=== PATIENT | female | born 1955 | race Caucasian/White ===

== ENCOUNTER 2018-09-02 18:55 | Inpatient (IN) | payer MEDICARE, OTHER ==
[~2018-09-02] VITALS: Ht 170.2 cm; Wt 208.2 kg
[~2018-09-02 18:55] MED LIST: ASPI-482 PO; CHOL500045 PO; CRESTOR5 MG PO; HYDR-2765 PO; OLME1TAB21 PO
--- NOTE | 2018-09-02 19:28 | PHYS DOC ---
Past Medical History Past Medical History: High Cholesterol, Hypertension, Other Additional Past Medical Histor: LYMPHADEMA Past Surgical History: Other Additional Past Surgical Histo: PARTIAL HYSTERECTOMY, LEFT SHOULDER,BILAT CTR Alcohol Use: None Drug Use: None Adult General Chief Complaint Chief Complaint: SKIN RASH/ABSCESS [facility] HPI Patient is a 62 year old female who presents with generalized weakness, malaise, fever 103 and soft tissue abscess to left upper inner medial thigh. Patient first noticed abscess 2 days ago. Patient has been bandaging it along the posterior drain. However, the patient began to feel weak, nauseated and fatigued today prompting her to call EMS. Patient noted to have fever on their arrival. History of recurrent soft tissue skin infections. Patient also reports possible spider bite or pustule on left forearm. Patient also has lymphedema with chronic erythroderma of bilateral lower extremities. No other acute symptoms or complaints.[] Review of Systems Review of Systems ROS as per HPI All other systems were reviewed and found to be within normal limits, except as documented in this note. Current Medications Current Medications Current Medications Medications (Trade) Dose Ordered Sig/Ginger Start Time Stop Time Status Last Admin Dose Admin Sodium Chloride 1,000 ml @ 1,000 mls/hr 1X ONCE 09/02/18 20:00 09/02/18 20:59 DC 09/02/18 20:38 1,000 MLS/HR Vancomycin HCl (Vanco Per Pharmacy) 1 each PRN DAILY PRN 09/02/18 19:30 09/02/18 21:21 1 EACH Vancomycin HCl 2 gm/Sodium Chloride 500 ml @ 166.667 mls/hr 1X ONCE 09/02/18 20:00 09/02/18 22:59 DC 09/02/18 20:38 166.667 MLS/HR Allergies Allergies Allergies Coded Allergies Type Severity Reaction Last Updated Verified NSAIDS (Non-Steroidal Anti-Inflamma Allergy Intermediate 09/02/18 Yes Penicillins Allergy Intermediate Rash 09/02/18 Yes ciprofloxacin Allergy Intermediate 09/02/18 Yes doxycycline Allergy Intermediate Rash 09/02/18 Yes levofloxacin Allergy Intermediate 09/02/18 Yes vancomycin Allergy Intermediate Rash 09/02/18 Yes Physical Exam Physical Exam Constitutional: Well developed, well nourished, no acute distress, non-toxic appearance. [] HENT: Normocephalic, atraumatic, bilateral external ears normal, oropharynx moist, nose normal. [] Eyes: PERRLA, EOMI. [] Neck: Normal range of motion, no tenderness, supple, no stridor. [] Cardiovascular:Heart rate regular rhythm, no murmur [] Lungs & Thorax: Bilateral breath sounds clear to auscultation [] Abdomen: Bowel sounds normal, obesity compromising exam.. [] Skin: Warm, dry, superficial pustule left forearm, no drainage. [] Back: No tenderness, no CVA tenderness. [] Extremities: Approximately 4 x 3 cm indurated area of left upper medial thigh with a troponin consistent with abscess righted by small patch of cellulitis, no drinking or drainage. No induration. [] Neurologic: Alert and oriented X 3, normal motor function, normal sensory function, no focal deficits noted. [] Psychologic: Affect normal, judgement normal, mood normal. [] Current Patient Data Vital Signs Vital Signs Date Time Temp Pulse Resp B/P (MAP) Pulse Ox O2 Delivery O2 Flow Rate FiO2 09/02/18 18:55 98.5 97 24 152/87 (108) 99 Room Air 98.5 Lab Values Laboratory Tests Test 09/02/18 19:10 09/02/18 20:00 Urine Collection Type Unknown Urine Color Yellow Urine Clarity Clear Urine pH 7.0 Urine Specific [place] 1.015 Urine Protein Negative mg/dL (NEG-TRACE) Urine Glucose (UA) Negative mg/dL (NEG) Urine Ketones (Stick) Negative mg/dL (NEG) Urine Blood Trace (NEG) Urine Nitrite Negative (NEG) Urine Bilirubin Negative (NEG) Urine Urobilinogen Dipstick 0.2 mg/dL (0.2 mg/dL) Urine Leukocyte Esterase Trace (NEG) Urine RBC 1-2 /HPF (0-2) Urine WBC 1-4 /HPF (0-4) Urine Squamous Epithelial Cells Mod /LPF Urine Bacteria Few /HPF (0-FEW) White Blood Count 8.4 x10^3/uL (4.0-11.0) Red Blood Count 4.56 x10^6/uL (3.50-5.40) Hemoglobin 12.5 g/dL (12.0-15.5) Hematocrit 38.0 % (36.0-47.0) Mean Corpuscular Volume 83 fL (79-100) Mean Corpuscular Hemoglobin 27 pg (25-35) Mean Corpuscular Hemoglobin Concent 33 g/dL (31-37) Red Cell Distribution Width 14.1 % (11.5-14.5) Platelet Count 234 x10^3/uL (140-400) Neutrophils (%) (Auto) 68 % (31-73) Lymphocytes (%) (Auto) 21 % (24-48) L Monocytes (%) (Auto) 10 % (0-9) H Eosinophils (%) (Auto) 0 % (0-3) Basophils (%) (Auto) 1 % (0-3) Neutrophils # (Auto) 5.7 x10^3uL (1.8-7.7) Lymphocytes # (Auto) 1.8 x10^3/uL (1.0-4.8) Monocytes # (Auto) 0.8 x10^3/uL (0.0-1.1) Eosinophils # (Auto) 0.0 x10^3/uL (0.0-0.7) Basophils # (Auto) 0.1 x10^3/uL (0.0-0.2) Sodium Level 135 mmol/L (136-145) L Potassium Level 3.9 mmol/L (3.5-5.1) Chloride Level 99 mmol/L (98-107) Carbon Dioxide Level 26 mmol/L (21-32) Anion Gap 10 (6-14) Blood Urea Nitrogen 11 mg/dL (7-20) Creatinine 0.9 mg/dL (0.6-1.0) Estimated GFR (Cockcroft-Gault) 63.7 BUN/Creatinine Ratio 12 (6-20) Glucose Level 115 mg/dL (70-99) H Lactic Acid Level 1.0 mmol/L (0.4-2.0) Calcium Level 9.4 mg/dL (8.5-10.1) Total Bilirubin 0.8 mg/dL (0.2-1.0) Aspartate Amino Transferase (AST) 21 U/L (15-37) Alanine Aminotransferase (ALT) 22 U/L (14-59) Alkaline Phosphatase 90 U/L (46-116) Creatine Kinase 151 U/L (26-192) Total Protein 8.1 g/dL (6.4-8.2) Albumin 3.4 g/dL (3.4-5.0) Albumin/Globulin Ratio 0.7 (1.0-1.7) L Laboratory Tests 09/02/18 20:00 Laboratory Tests 09/02/18 20:00 EKG EKG [] Radiology/Procedures Radiology/Procedures [] Course & Med Decision Making Course & Med Decision Making Pertinent Labs and Imaging studies reviewed. (See chart for details) [Soft tissue infection, left thigh. Patient started empirically on clindamycin and vancomycin. States she has tolerated vancomycin in the past but that it needs to be given slowly due to concern for red man syndrome. Will admit to the hospitalist service.] Dragon Disclaimer Dragon Disclaimer This electronic medical record was generated, in whole or in part, using a voice recognition dictation system. Departure Departure Impression: Primary Impression: Abscess of left thigh Disposition: ADMITTED INPATIENT Admitting Physician: Saul Arauz Condition: GOOD Referrals: TERESA WILLIAMSON MD (PCP) KYLIE HILL DO Sep 02, 2018 19:28
[2018-09-02 19:31] LABS: BILIRUBIN,URINE NEGATIVE (NEG); CLARITY,URINE CLEAR; COLOR,URINE YELLOW; NITRITE,URINE NEGATIVE (NEG); PROTEIN,URINE NEGATIVE (NEG-TRACE); UROBILINOGEN,URINE 0.2 mg/dL (0.2 mg/dL)
[2018-09-02 19:38] LABS: BACTERIA,URINE FEW /HPF (0-FEW); SQUAMOUS EPITHELIAL CELL,UR MOD /LPF
[2018-09-02] MEDS ORDERED: VANCOMYCIN 2 GM in IV NORMAL SALINE 500ML BAG 500 ML IV ONE (20:00)
[2018-09-02] MEDS ORDERED: IV NORMAL SALINE 1000ML BAG 1,000 ML IV ONE (20:00)
[2018-09-02 20:11] LABS: BASO # 0.1 x10^3/uL (0.0-0.2); BASO % 1 % (0-3); EOS % 0 % (0-3); HEMOGLOBIN 12.5 g/dL (12.0-15.5); LYMPH # 1.8 x10^3/uL (1.0-4.8); LYMPH % 21 % (24-48); MEAN CORPUSCULAR HEMOGLOBIN 27 pg (25-35); MEAN CORPUSCULAR HGB CONC 33 g/dL (31-37); MEAN CORPUSCULAR VOLUME 83 fL (79-100); MONO # 0.8 x10^3/uL (0.0-1.1); MONO % 10 % (0-9); NEUT # 5.7 x10^3uL (1.8-7.7); NEUT % 68 % (31-73); PLATELET COUNT 234 x10^3/uL (140-400); RED BLOOD COUNT 4.56 x10^6/uL (3.50-5.40); RED CELL DISTRIBUTION WIDTH 14.1 % (11.5-14.5); WHITE BLOOD COUNT 8.4 x10^3/uL (4.0-11.0)
[2018-09-02 20:21] LABS: CALCIUM 9.4 mg/dL (8.5-10.1); CREATININE 0.9 mg/dL (0.6-1.0); GFR 63.7; POTASSIUM 3.9 mmol/L (3.5-5.1)
--- NOTE | 2018-09-02 20:26 | RAD ---
CHEST AP ONLY History: Shortness of air Comparison: April 11, 2007 Findings: 2 portable AP views of the chest are submitted. Pericardial cardiac silhouette is prominent as seen previously. Fullness in the region of azygous is more apparent on this exam. There is no pneumothorax. Evaluation of the left lung base is limited due to the pericardial cardiac silhouette,. There is some mild perihilar opacity bilaterally Impression: 1. Pericardial cardiac silhouette is again enlarged. There is mild perihilar opacity which could be due to edema or atypical infection. There is some fullness in the region of the azygos more apparent on this exam, could be due to azygos distention. Electronically signed by: Rj Brooks MD (09/02/2018 8:23 PM) [facility]
[2018-09-02 20:34] LABS: ALBUMIN 3.4 g/dL (3.4-5.0); ALBUMIN/GLOBULIN RATIO 0.7 (1.0-1.7); TOTAL BILIRUBIN 0.8 mg/dL (0.2-1.0); TOTAL PROTEIN 8.1 g/dL (6.4-8.2)
[2018-09-02] MEDS ORDERED: ONDANSETRON PF 4 MG/2 ML VIAL. IV PRN (20:45)
[2018-09-02] MEDS ORDERED: MORPHINE SULFATE 2 MG/ML VIAL. IV PRN (20:45)
[2018-09-02] MEDS: VANCOMYCIN PER PHARMACY MC PRN (21:21)
--- NOTE | 2018-09-02 21:25 | NUR ---
Pharmacy Vancomycin Dosing Note S: Consulted to monitor and dose vancomycin started 09/02/18. O: RAFIA MALHOTRA is a 62 year old F with Cellulitis, . Other Antibiotics: NONE LABS: Last BUN: 11 Last Creatinine: 0.9 Creatinine Clearance: >100 mL/min Last WBC: 8.4 Tmax (past 24 hours): AFEBRILE Vancomycin Dosing: Dosing Weight: Adjusted Target Trough: 10-20 A: Based on: VANCO dosing guidelines P: 1. Begin Vancomycin 2000 mg IV q12h 2. Follow up Trough level on 09/03/18 at 2030 3. Pharmacy will continue to monitor, follow and adjust therapy as needed. DESMOND KOHLER, [facility], 09/02/18 1110
[2018-09-02] MEDS ORDERED: LOSA25TA54 PO (21:52)
[2018-09-02 22:02] VITALS: BP 180/73
--- NOTE | 2018-09-02 22:17 | HP ---
ADMIT DATE: 09/02/2018 CHIEF COMPLAINT: Right posterior thigh abscess. HISTORY OF PRESENT ILLNESS: The patient is a pleasant, morbidly obese white female who weighs 450 pounds. She has chronic soft tissue issues. At this time, it is on the right posterior thigh. I think it has been there before. It is not very big, but is quite swollen, it is draining. It is in the right ____ in the middle of the right posterior thigh. It has been worsening over the past 2 days, describes as agonizing, very painful. She tried to call her primary care doctor, get some antibiotics, but that did not seem to work out. It is worse with moving, better with sitting still. I discussed the case with the ER physician. We are going to admit the patient, give IV antibiotics and consult Infectious Disease and General Surgery. PAST MEDICAL HISTORY: Morbid obesity, 450 pounds; hypertension; hyperlipidemia; chronic lymphedema; previous skin abscesses; hysterectomy; shoulder surgery. ALLERGIES: NSAIDS, PENICILLIN, CIPRO, DOXYCYCLINE, LEVAQUIN, AND VANCOMYCIN. FAMILY HISTORY: Coronary disease. SOCIAL HISTORY: She does not drink, smoke or take drugs. MEDICATIONS: Reviewed, please refer to the MRAD. REVIEW OF SYSTEMS: GENERAL: No history of weight change, weakness or fevers. SKIN: No bruising, hair changes or rashes. EYES: No blurred, double or loss of vision. NOSE AND THROAT: No history of nosebleeds, hoarseness or sore throat. HEART: No history of palpitations, chest pain or shortness of breath on exertion. LUNGS: Denies cough, hemoptysis, wheezing or shortness of breath. GASTROINTESTINAL: Denies changes in appetite, nausea, vomiting, diarrhea or constipation. GENITOURINARY: No history of frequency, urgency, hesitancy or nocturia. NEUROLOGIC: Denies history of numbness, tingling, tremor or weakness. PSYCHIATRIC: No history of panic, anxiety or depression. ENDOCRINE: No history of heat or cold intolerance, polyuria or polydipsia. EXTREMITIES: She complains of right posterior thigh abscess. PHYSICAL EXAMINATION: VITAL SIGNS: Temperature afebrile, pulse 98, respirations 18, blood pressure 142/90. GENERAL: She is alert, cooperative, pleasant. HEART: Normal S1, S2. LUNGS: Diminished. ABDOMEN: Soft, extremely obese. EXTREMITIES: Very obese. The right posterior thigh does have an abscess about 1 cm across with some surrounding erythema and drainage. ENDOCRINE: No thyromegaly. LYMPHATICS: No cervical nodes. HEMATOPOIETIC: No bruising. PSYCHIATRIC: She is depressed. LABORATORY DATA: Hematology is normal. Electrolytes are normal other than sodium of 135. Urinalysis, trace leukocyte esterase with 1 white cell. ASSESSMENT AND PLAN: Right posterior thigh abscess. The patient has been admitted. We will start IV vancomycin as she seems to have tolerated that already today. As long as we push it slow she states she can take it. We will consult Infectious Disease, General Surgery. Continue home medicines. Wound care nurse to evaluate and treat. Full code. DVT prophylaxis, PT, OT. PROGNOSIS: Guarded. DO EVERETT DO DR: BEN/carmen JOB#: [id number] / [id number]
[2018-09-02] MEDS ORDERED: CETI10TA22 PO (23:40)
[2018-09-02] MEDS ORDERED: GUAI100G2 PO (23:40)
[2018-09-02] MEDS: IV NORMAL SALINE 1000ML BAG 1,000 ML IV SCH (23:43)
[2018-09-02] MEDS ORDERED: ALPRAZolam 0.5 MG TABLET PO PRN (23:45)
[2018-09-03] MEDS: HYDROcodone/APAP 7.5/325MG 1 TAB TABLET PO PRN ×3 (01:59→19:49)
[2018-09-03 03:43] VITALS: BP 112/54
[2018-09-03 04:44] LABS: BASO % 0 % (0-3); EOS % 1 % (0-3); HEMOGLOBIN 11.4 g/dL (12.0-15.5); LYMPH # 2.3 x10^3/uL (1.0-4.8); LYMPH % 31 % (24-48); MEAN CORPUSCULAR HEMOGLOBIN 27 pg (25-35); MEAN CORPUSCULAR HGB CONC 33 g/dL (31-37); MEAN CORPUSCULAR VOLUME 84 fL (79-100); MONO # 0.9 x10^3/uL (0.0-1.1); MONO % 12 % (0-9); NEUT # 4.1 x10^3uL (1.8-7.7); NEUT % 56 % (31-73); PLATELET COUNT 222 x10^3/uL (140-400); RED BLOOD COUNT 4.16 x10^6/uL (3.50-5.40); RED CELL DISTRIBUTION WIDTH 14.2 % (11.5-14.5); WHITE BLOOD COUNT 7.4 x10^3/uL (4.0-11.0)
[2018-09-03 05:00] LABS: CALCIUM 8.8 mg/dL (8.5-10.1); CREATININE 0.7 mg/dL (0.6-1.0); GFR 85.1; POTASSIUM 3.5 mmol/L (3.5-5.1)
[2018-09-03 07:20] VITALS: BP 130/67
[2018-09-03] MEDS ORDERED: POTASSIUM CHLORIDE 20 MEQ TABLET.ER. PO ONE (09:30)
--- NOTE | 2018-09-03 09:50 | PDOC ---
PROGRESS NOTES Chief Complaint Chief Complaint sepsis Right posterior thigh abscess. morbid obesity, BMI 75 chronic hip and leg and back pain, History of Present Illness History of Present Illness PT and OT and wound care and lymph therapy IV abx, ID consult gen surg consult, may benefit from I+D from appearance, Vitals Vitals Vital Signs Date Time Temp Pulse Resp B/P (MAP) Pulse Ox O2 Delivery O2 Flow Rate FiO2 09/03/18 07:20 99.0 103 20 130/67 (88) 94 Room Air 99.0 Physical Exam General: Alert, Oriented X3, Cooperative, mild distress Heart: Normal S1, Normal S2 Abdomen: Normal bowel sounds Extremities: No clubbing Skin: Other (left post thigh celllulitis and open abcess, ) Labs LABS Laboratory Tests Test 09/02/18 19:10 09/02/18 20:00 09/03/18 04:00 Urine Collection Type Unknown Urine Color Yellow Urine Clarity Clear Urine pH 7.0 Urine Specific [place] 1.015 Urine Protein Negative mg/dL (NEG-TRACE) Urine Glucose (UA) Negative mg/dL (NEG) Urine Ketones (Stick) Negative mg/dL (NEG) Urine Blood Trace (NEG) Urine Nitrite Negative (NEG) Urine Bilirubin Negative (NEG) Urine Urobilinogen Dipstick 0.2 mg/dL (0.2 mg/dL) Urine Leukocyte Esterase Trace (NEG) Urine RBC 1-2 /HPF (0-2) Urine WBC 1-4 /HPF (0-4) Urine Squamous Epithelial Cells Mod /LPF Urine Bacteria Few /HPF (0-FEW) White Blood Count 8.4 x10^3/uL (4.0-11.0) 7.4 x10^3/uL (4.0-11.0) Red Blood Count 4.56 x10^6/uL (3.50-5.40) 4.16 x10^6/uL (3.50-5.40) Hemoglobin 12.5 g/dL (12.0-15.5) 11.4 g/dL (12.0-15.5) Hematocrit 38.0 % (36.0-47.0) 35.0 % (36.0-47.0) Mean Corpuscular Volume 83 fL (79-100) 84 fL (79-100) Mean Corpuscular Hemoglobin 27 pg (25-35) 27 pg (25-35) Mean Corpuscular Hemoglobin Concent 33 g/dL (31-37) 33 g/dL (31-37) Red Cell Distribution Width 14.1 % (11.5-14.5) 14.2 % (11.5-14.5) Platelet Count 234 x10^3/uL (140-400) 222 x10^3/uL (140-400) Neutrophils (%) (Auto) 68 % (31-73) 56 % (31-73) Lymphocytes (%) (Auto) 21 % (24-48) 31 % (24-48) Monocytes (%) (Auto) 10 % (0-9) 12 % (0-9) Eosinophils (%) (Auto) 0 % (0-3) 1 % (0-3) Basophils (%) (Auto) 1 % (0-3) 0 % (0-3) Neutrophils # (Auto) 5.7 x10^3uL (1.8-7.7) 4.1 x10^3uL (1.8-7.7) Lymphocytes # (Auto) 1.8 x10^3/uL (1.0-4.8) 2.3 x10^3/uL (1.0-4.8) Monocytes # (Auto) 0.8 x10^3/uL (0.0-1.1) 0.9 x10^3/uL (0.0-1.1) Eosinophils # (Auto) 0.0 x10^3/uL (0.0-0.7) 0.0 x10^3/uL (0.0-0.7) Basophils # (Auto) 0.1 x10^3/uL (0.0-0.2) 0.0 x10^3/uL (0.0-0.2) Sodium Level 135 mmol/L (136-145) 140 mmol/L (136-145) Potassium Level 3.9 mmol/L (3.5-5.1) 3.5 mmol/L (3.5-5.1) Chloride Level 99 mmol/L (98-107) 104 mmol/L (98-107) Carbon Dioxide Level 26 mmol/L (21-32) 27 mmol/L (21-32) Anion Gap 10 (6-14) 9 (6-14) Blood Urea Nitrogen 11 mg/dL (7-20) 8 mg/dL (7-20) Creatinine 0.9 mg/dL (0.6-1.0) 0.7 mg/dL (0.6-1.0) Estimated GFR (Cockcroft-Gault) 63.7 85.1 BUN/Creatinine Ratio 12 (6-20) Glucose Level 115 mg/dL (70-99) 110 mg/dL (70-99) Lactic Acid Level 1.0 mmol/L (0.4-2.0) Calcium Level 9.4 mg/dL (8.5-10.1) 8.8 mg/dL (8.5-10.1) Total Bilirubin 0.8 mg/dL (0.2-1.0) Aspartate Amino Transf (AST/SGOT) 21 U/L (15-37) Alanine Aminotransferase (ALT/SGPT) 22 U/L (14-59) Alkaline Phosphatase 90 U/L (46-116) Creatine Kinase 151 U/L (26-192) Total Protein 8.1 g/dL (6.4-8.2) Albumin 3.4 g/dL (3.4-5.0) Albumin/Globulin Ratio 0.7 (1.0-1.7) Review of Systems Review of Systems back pain, wekaness, knee pain, thigh pain, chronic complaints Assessment and Plan Assessmemt and Plan Problems Medical Problems: (1) Abscess of left thigh Status: Acute Comment Review of Relevant I have reviewed the following items kenneth (where applicable) has been applied. Labs Laboratory Tests Test 09/02/18 19:10 09/02/18 20:00 09/03/18 04:00 Urine Collection Type Unknown Urine Color Yellow Urine Clarity Clear Urine pH 7.0 Urine Specific [place] 1.015 Urine Protein Negative mg/dL (NEG-TRACE) Urine Glucose (UA) Negative mg/dL (NEG) Urine Ketones (Stick) Negative mg/dL (NEG) Urine Blood Trace (NEG) Urine Nitrite Negative (NEG) Urine Bilirubin Negative (NEG) Urine Urobilinogen Dipstick 0.2 mg/dL (0.2 mg/dL) Urine Leukocyte Esterase Trace (NEG) Urine RBC 1-2 /HPF (0-2) Urine WBC 1-4 /HPF (0-4) Urine Squamous Epithelial Cells Mod /LPF Urine Bacteria Few /HPF (0-FEW) White Blood Count 8.4 x10^3/uL (4.0-11.0) 7.4 x10^3/uL (4.0-11.0) Red Blood Count 4.56 x10^6/uL (3.50-5.40) 4.16 x10^6/uL (3.50-5.40) Hemoglobin 12.5 g/dL (12.0-15.5) 11.4 g/dL (12.0-15.5) Hematocrit 38.0 % (36.0-47.0) 35.0 % (36.0-47.0) Mean Corpuscular Volume 83 fL (79-100) 84 fL (79-100) Mean Corpuscular Hemoglobin 27 pg (25-35) 27 pg (25-35) Mean Corpuscular Hemoglobin Concent 33 g/dL (31-37) 33 g/dL (31-37) Red Cell Distribution Width 14.1 % (11.5-14.5) 14.2 % (11.5-14.5) Platelet Count 234 x10^3/uL (140-400) 222 x10^3/uL (140-400) Neutrophils (%) (Auto) 68 % (31-73) 56 % (31-73) Lymphocytes (%) (Auto) 21 % (24-48) 31 % (24-48) Monocytes (%) (Auto) 10 % (0-9) 12 % (0-9) Eosinophils (%) (Auto) 0 % (0-3) 1 % (0-3) Basophils (%) (Auto) 1 % (0-3) 0 % (0-3) Neutrophils # (Auto) 5.7 x10^3uL (1.8-7.7) 4.1 x10^3uL (1.8-7.7) Lymphocytes # (Auto) 1.8 x10^3/uL (1.0-4.8) 2.3 x10^3/uL (1.0-4.8) Monocytes # (Auto) 0.8 x10^3/uL (0.0-1.1) 0.9 x10^3/uL (0.0-1.1) Eosinophils # (Auto) 0.0 x10^3/uL (0.0-0.7) 0.0 x10^3/uL (0.0-0.7) Basophils # (Auto) 0.1 x10^3/uL (0.0-0.2) 0.0 x10^3/uL (0.0-0.2) Sodium Level 135 mmol/L (136-145) 140 mmol/L (136-145) Potassium Level 3.9 mmol/L (3.5-5.1) 3.5 mmol/L (3.5-5.1) Chloride Level 99 mmol/L (98-107) 104 mmol/L (98-107) Carbon Dioxide Level 26 mmol/L (21-32) 27 mmol/L (21-32) Anion Gap 10 (6-14) 9 (6-14) Blood Urea Nitrogen 11 mg/dL (7-20) 8 mg/dL (7-20) Creatinine 0.9 mg/dL (0.6-1.0) 0.7 mg/dL (0.6-1.0) Estimated GFR (Cockcroft-Gault) 63.7 85.1 BUN/Creatinine Ratio 12 (6-20) Glucose Level 115 mg/dL (70-99) 110 mg/dL (70-99) Lactic Acid Level 1.0 mmol/L (0.4-2.0) Calcium Level 9.4 mg/dL (8.5-10.1) 8.8 mg/dL (8.5-10.1) Total Bilirubin 0.8 mg/dL (0.2-1.0) Aspartate Amino Transf (AST/SGOT) 21 U/L (15-37) Alanine Aminotransferase (ALT/SGPT) 22 U/L (14-59) Alkaline Phosphatase 90 U/L (46-116) Creatine Kinase 151 U/L (26-192) Total Protein 8.1 g/dL (6.4-8.2) Albumin 3.4 g/dL (3.4-5.0) Albumin/Globulin Ratio 0.7 (1.0-1.7) Laboratory Tests Test 09/02/18 19:10 09/02/18 20:00 09/03/18 04:00 Urine Collection Type Unknown Urine Color Yellow Urine Clarity Clear Urine pH 7.0 Urine Specific [place] 1.015 Urine Protein Negative mg/dL (NEG-TRACE) Urine Glucose (UA) Negative mg/dL (NEG) Urine Ketones (Stick) Negative mg/dL (NEG) Urine Blood Trace (NEG) Urine Nitrite Negative (NEG) Urine Bilirubin Negative (NEG) Urine Urobilinogen Dipstick 0.2 mg/dL (0.2 mg/dL) Urine Leukocyte Esterase Trace (NEG) Urine RBC 1-2 /HPF (0-2) Urine WBC 1-4 /HPF (0-4) Urine Squamous Epithelial Cells Mod /LPF Urine Bacteria Few /HPF (0-FEW) White Blood Count 8.4 x10^3/uL (4.0-11.0) 7.4 x10^3/uL (4.0-11.0) Red Blood Count 4.56 x10^6/uL (3.50-5.40) 4.16 x10^6/uL (3.50-5.40) Hemoglobin 12.5 g/dL (12.0-15.5) 11.4 g/dL (12.0-15.5) Hematocrit 38.0 % (36.0-47.0) 35.0 % (36.0-47.0) Mean Corpuscular Volume 83 fL (79-100) 84 fL (79-100) Mean Corpuscular Hemoglobin 27 pg (25-35) 27 pg (25-35) Mean Corpuscular Hemoglobin Concent 33 g/dL (31-37) 33 g/dL (31-37) Red Cell Distribution Width 14.1 % (11.5-14.5) 14.2 % (11.5-14.5) Platelet Count 234 x10^3/uL (140-400) 222 x10^3/uL (140-400) Neutrophils (%) (Auto) 68 % (31-73) 56 % (31-73) Lymphocytes (%) (Auto) 21 % (24-48) 31 % (24-48) Monocytes (%) (Auto) 10 % (0-9) 12 % (0-9) Eosinophils (%) (Auto) 0 % (0-3) 1 % (0-3) Basophils (%) (Auto) 1 % (0-3) 0 % (0-3) Neutrophils # (Auto) 5.7 x10^3uL (1.8-7.7) 4.1 x10^3uL (1.8-7.7) Lymphocytes # (Auto) 1.8 x10^3/uL (1.0-4.8) 2.3 x10^3/uL (1.0-4.8) Monocytes # (Auto) 0.8 x10^3/uL (0.0-1.1) 0.9 x10^3/uL (0.0-1.1) Eosinophils # (Auto) 0.0 x10^3/uL (0.0-0.7) 0.0 x10^3/uL (0.0-0.7) Basophils # (Auto) 0.1 x10^3/uL (0.0-0.2) 0.0 x10^3/uL (0.0-0.2) Sodium Level 135 mmol/L (136-145) 140 mmol/L (136-145) Potassium Level 3.9 mmol/L (3.5-5.1) 3.5 mmol/L (3.5-5.1) Chloride Level 99 mmol/L (98-107) 104 mmol/L (98-107) Carbon Dioxide Level 26 mmol/L (21-32) 27 mmol/L (21-32) Anion Gap 10 (6-14) 9 (6-14) Blood Urea Nitrogen 11 mg/dL (7-20) 8 mg/dL (7-20) Creatinine 0.9 mg/dL (0.6-1.0) 0.7 mg/dL (0.6-1.0) Estimated GFR (Cockcroft-Gault) 63.7 85.1 BUN/Creatinine Ratio 12 (6-20) Glucose Level 115 mg/dL (70-99) 110 mg/dL (70-99) Lactic Acid Level 1.0 mmol/L (0.4-2.0) Calcium Level 9.4 mg/dL (8.5-10.1) 8.8 mg/dL (8.5-10.1) Total Bilirubin 0.8 mg/dL (0.2-1.0) Aspartate Amino Transf (AST/SGOT) 21 U/L (15-37) Alanine Aminotransferase (ALT/SGPT) 22 U/L (14-59) Alkaline Phosphatase 90 U/L (46-116) Creatine Kinase 151 U/L (26-192) Total Protein 8.1 g/dL (6.4-8.2) Albumin 3.4 g/dL (3.4-5.0) Albumin/Globulin Ratio 0.7 (1.0-1.7) Medications Current Medications Sodium Chloride 1,000 ml @ 1,000 mls/hr 1X ONCE IV Last administered on 09/02/18at 20:38; Start 09/02/18 at 20:00; Stop 09/02/18 at 20:59; Status DC Vancomycin HCl (Vanco Per Pharmacy) 1 each PRN DAILY PRN MC SEE COMMENTS Last administered on 09/02/18at 21:21; Start 09/02/18 at 19:30 Vancomycin HCl 2 gm/Sodium Chloride 500 ml @ 166.667 mls/hr 1X ONCE IV Last administered on 09/02/18at 20:38; Start 09/02/18 at 20:00; Stop 09/02/18 at 22:59; Status DC Ondansetron HCl (Zofran) 4 mg PRN Q8HRS PRN IV NAUSEA/VOMITING 1ST CHOICE; Start 09/02/18 at 20:45; Stop 09/03/18 at 20:44 Morphine Sulfate (Morphine Sulfate) 2 mg PRN Q2HR PRN IV SEVERE PAIN; Start 09/02/18 at 20:45; Stop 09/03/18 at 20:44 Sodium Chloride 1,000 ml @ 150 mls/hr Q6H40M IV Last administered on 09/02/18at 23:43; Start 09/02/18 at 21:00; Stop 09/03/18 at 20:59 Vancomycin HCl 2 gm/Sodium Chloride 500 ml @ 166.667 mls/hr Q12H IV ; Start 09/03/18 at 09:00 Vancomycin HCl (Vancomycin Trough Level) 1 each 1X ONCE MC ; Start 09/03/18 at 20:30; Stop 09/03/18 at 20:31 Aspirin (Ecotrin) 162 mg DAILY PO ; Start 09/03/18 at 09:00 Acetaminophen/ Hydrocodone Bitart (Lortab 7.5/325) 1 tab PRN Q6HRS PRN PO SEVERE PAIN Last administered on 09/03/18at 01:59; Start 09/02/18 at 23:45 Losartan Potassium (Cozaar) 25 mg DAILYBFRSUP PO ; Start 09/03/18 at 17:00 Cetirizine HCl (ZyrTEC) 10 mg DAILY PO ; Start 09/03/18 at 09:00 Guaifenesin (Mucinex) 600 mg DAILY PO ; Start 09/03/18 at 09:00 Alprazolam (Xanax) 0.5 mg PRN Q6HRS PRN PO MODERATE ANXIETY/AGITATION; Start 09/02/18 at 23:45 Alprazolam (Xanax) 1 mg PRN Q6HRS PRN PO SEVERE ANXIETY / AGITATION; Start 09/02/18 at 23:45 Active Scripts Active Reported Zyrtec (Cetirizine Hcl) 10 Mg Tablet 10 Mg PO DAILY Mucinex (Guaifenesin) 100 Mg Gran.pack 200 Mg PO DAILY Losartan Potassium (Losartan Potassium) 25 Mg Tablet 25 Mg PO DAILYBFRSUP Hydrocodone-Apap 7.5-325 (Hydrocodone Bit/Acetaminophen) 1 Each Tablet 1 Tab PO PRN Q6HRS PRN Vitamin D (Cholecalciferol (Vitamin D3)) 5,000 Unit Tablet 5,000 Unit PO Aspir 81 (Aspirin) 81 Mg Tablet. 2 Tab PO DAILY Vitals/I & O Vital Sign - Last 24 Hours 09/02/18 09/02/18 09/02/18 09/03/18 18:55 22:02 22:57 01:59 Temp 98.5 100.9 98.5 100.9 Pulse 97 91 Resp 24 22 B/P (MAP) 152/87 (108) 180/73 (108) Pulse Ox 99 99 O2 Delivery Room Air Room Air Room Air Room Air 09/03/18 09/03/18 09/03/18 03:13 03:43 07:20 Temp 98.6 99.0 98.6 99.0 Pulse 98 103 Resp 21 20 B/P (MAP) 112/54 (73) 130/67 (88) Pulse Ox 94 94 O2 Delivery Room Air Room Air Room Air Intake and Output 09/02/18 09/02/18 09/03/18 15:00 23:00 07:00 Intake Total 360 ml Balance 360 ml KRISTIE FLORES MD Sep 03, 2018 09:50
[2018-09-03] MEDS: IV NORMAL SALINE 1000ML BAG 1,000 ML IV SCH ×3 (10:20→18:35)
[2018-09-03] MEDS: VANCOMYCIN 2 GM in IV NORMAL SALINE 500ML BAG 500 ML IV SCH ×2 (10:21→19:51)
[2018-09-03] MEDS: ALPRAZolam 1 MG TABLET PO PRN ×2 (10:22→19:50)
[2018-09-03] MEDS: CETIRIZINE HCL 10 MG TABLET. PO SCH (10:22)
[2018-09-03] MEDS: ASPIRIN ENTERIC COATED 81 MG TABLET.DR. PO SCH (10:22)
[2018-09-03 11:08] VITALS: BP 130/79
--- NOTE | 2018-09-03 12:08 | PDOC ---
Infectious Disease Note Vital Sign Vital Signs Vital Signs Date Time Temp Pulse Resp B/P (MAP) Pulse Ox O2 Delivery O2 Flow Rate FiO2 09/03/18 11:08 98.8 96 21 130/79 (96) 95 Room Air 98.8 Labs Lab Laboratory Tests Test 09/02/18 19:10 09/02/18 20:00 09/03/18 04:00 Urine Collection Type Unknown Urine Color Yellow Urine Clarity Clear Urine pH 7.0 Urine Specific [place] 1.015 Urine Protein Negative mg/dL (NEG-TRACE) Urine Glucose (UA) Negative mg/dL (NEG) Urine Ketones (Stick) Negative mg/dL (NEG) Urine Blood Trace (NEG) Urine Nitrite Negative (NEG) Urine Bilirubin Negative (NEG) Urine Urobilinogen Dipstick 0.2 mg/dL (0.2 mg/dL) Urine Leukocyte Esterase Trace (NEG) Urine RBC 1-2 /HPF (0-2) Urine WBC 1-4 /HPF (0-4) Urine Squamous Epithelial Cells Mod /LPF Urine Bacteria Few /HPF (0-FEW) White Blood Count 8.4 x10^3/uL (4.0-11.0) 7.4 x10^3/uL (4.0-11.0) Red Blood Count 4.56 x10^6/uL (3.50-5.40) 4.16 x10^6/uL (3.50-5.40) Hemoglobin 12.5 g/dL (12.0-15.5) 11.4 g/dL (12.0-15.5) Hematocrit 38.0 % (36.0-47.0) 35.0 % (36.0-47.0) Mean Corpuscular Volume 83 fL (79-100) 84 fL (79-100) Mean Corpuscular Hemoglobin 27 pg (25-35) 27 pg (25-35) Mean Corpuscular Hemoglobin Concent 33 g/dL (31-37) 33 g/dL (31-37) Red Cell Distribution Width 14.1 % (11.5-14.5) 14.2 % (11.5-14.5) Platelet Count 234 x10^3/uL (140-400) 222 x10^3/uL (140-400) Neutrophils (%) (Auto) 68 % (31-73) 56 % (31-73) Lymphocytes (%) (Auto) 21 % (24-48) 31 % (24-48) Monocytes (%) (Auto) 10 % (0-9) 12 % (0-9) Eosinophils (%) (Auto) 0 % (0-3) 1 % (0-3) Basophils (%) (Auto) 1 % (0-3) 0 % (0-3) Neutrophils # (Auto) 5.7 x10^3uL (1.8-7.7) 4.1 x10^3uL (1.8-7.7) Lymphocytes # (Auto) 1.8 x10^3/uL (1.0-4.8) 2.3 x10^3/uL (1.0-4.8) Monocytes # (Auto) 0.8 x10^3/uL (0.0-1.1) 0.9 x10^3/uL (0.0-1.1) Eosinophils # (Auto) 0.0 x10^3/uL (0.0-0.7) 0.0 x10^3/uL (0.0-0.7) Basophils # (Auto) 0.1 x10^3/uL (0.0-0.2) 0.0 x10^3/uL (0.0-0.2) Sodium Level 135 mmol/L (136-145) 140 mmol/L (136-145) Potassium Level 3.9 mmol/L (3.5-5.1) 3.5 mmol/L (3.5-5.1) Chloride Level 99 mmol/L (98-107) 104 mmol/L (98-107) Carbon Dioxide Level 26 mmol/L (21-32) 27 mmol/L (21-32) Anion Gap 10 (6-14) 9 (6-14) Blood Urea Nitrogen 11 mg/dL (7-20) 8 mg/dL (7-20) Creatinine 0.9 mg/dL (0.6-1.0) 0.7 mg/dL (0.6-1.0) Estimated GFR (Cockcroft-Gault) 63.7 85.1 BUN/Creatinine Ratio 12 (6-20) Glucose Level 115 mg/dL (70-99) 110 mg/dL (70-99) Lactic Acid Level 1.0 mmol/L (0.4-2.0) Calcium Level 9.4 mg/dL (8.5-10.1) 8.8 mg/dL (8.5-10.1) Total Bilirubin 0.8 mg/dL (0.2-1.0) Aspartate Amino Transf (AST/SGOT) 21 U/L (15-37) Alanine Aminotransferase (ALT/SGPT) 22 U/L (14-59) Alkaline Phosphatase 90 U/L (46-116) Creatine Kinase 151 U/L (26-192) Total Protein 8.1 g/dL (6.4-8.2) Albumin 3.4 g/dL (3.4-5.0) Albumin/Globulin Ratio 0.7 (1.0-1.7) Objective Assessment Cellulitis and abscess left posterior thigh Fever Multiple abx allergies: PCN w/ blotching of skin after one dose at age 6. Has tolerated Cefdinir wo problems Doxy w/ hives Levaquin and Cipro w/ joint pains Vancomycin w/ Migue's syndrome if given too fast Super morbid obesity, BMI 72 Chronic lymphedema and venous stasis ulcers lower extremities. Plan Plan of Care Continue vancomycin for now as she is tolerating it at a slow rate May be difficult to achieve vanc levels due to body habitus Monitor renal function closely. Add Cefepime and Flagyl Obtain an US and anaerobic-aerobic culture Also will get a set of blood cultures Local wound care Thank you [phone] Attending Co-Sign The patient was seen and interviewed as well as examined at the bedside. The chart was reviewed. The case was discussed. Agree with the plan of care. LUZ WYLIE APRN Sep 03, 2018 12:08 OMER BETHEA MD Sep 03, 2018 13:42
--- NOTE | 2018-09-03 14:11 | CONS ---
DATE OF CONSULTATION: 09/03/2018 Taye Perez APRN, dictating for Dr. Thomas Bethea, Infectious Disease. REFERRING PHYSICIAN: Dr. Arauz. REASON FOR CONSULTATION: Right posterior thigh abscess and multiple antibiotic allergies. HISTORY OF PRESENT ILLNESS: This patient is a 62-year-old female who is morbidly obese with a BMI of 72, who explains that about 5 days ago while she was washing herself, she felt a bump on the left posterior thigh area. Over the following few days, the "bump" grew in size and became tender and red. She thought she may have a boil as she has had skin infections in the past. She applied hot packs and brid with little improvement. She developed fevers and body aches. She took Tylenol without relief. She has since been admitted with cellulitis and abscess. She is currently on vancomycin. ID has been asked to consult for further evaluation and antibiotic management. PAST MEDICAL HISTORY: 1. Super morbid obesity. 2. Chronic lymphedema and venous stasis ulcerations lower extremities bilaterally. 3. Soft skin tissue infections. 4. Hyperlipidemia. 5. Hypertension. 6. GERD. 7. Incontinence. 8. Carpal tunnel syndrome. 9. Depression. 10. Anxiety. PAST SURGICAL HISTORY: Oophorectomy, left shoulder surgery and partial hysterectomy. SOCIAL HISTORY: The patient lives at home. She is not . Nonsmoker. FAMILY HISTORY: Positive for coronary artery disease. ALLERGIES: Listed PENICILLIN. She says at the age of 6, she broke out in BLOTCHES after one dose. She has not had any PENICILLIN nor tried amoxicillin since. She has tolerated cefdinir in the past without problems. DOXYCYCLINE WITH HIVES. LEVOFLOXACIN and CIPROFLOXACIN with JOINT PAINS. VANCOMYCIN causing RED MAN SYNDROME IF GIVEN TOO FAST. MEDICATIONS: Vancomycin. Other medications are available and have been reviewed on the JUL. REVIEW OF SYSTEMS: Per HPI, otherwise all other review of systems negative. PHYSICAL EXAMINATION: VITAL SIGNS: Temperature is 98.8, T-max 100.9, blood pressure 130/79, heart rate 96, respiratory rate 21, pulse oximetry is 95% on room air. BMI 72. GENERAL: The patient is sitting in a chair, alert, in no apparent distress. HEENT: Pupils equally round. Normal conjunctivae. Oral cavity: Pharynx pink and moist. NECK: Supple. LUNGS: Clear to auscultation. HEART: Distant heart tones. ABDOMEN: Obese, soft and nontender with bowel sounds present. EXTREMITIES: The patient has compressions on lower extremities bilaterally for which she did not want me to remove. On her left posterior thigh, she has an area of induration and redness with drainage. SKIN: Warm without rash. NEUROLOGIC: Alert and oriented x 3. LABORATORY DATA: Today WBC 7.4; hemoglobin 11.4; platelets 222,000. Electrolytes are unremarkable. Creatinine 0.7, BUN 8. Lactic acid 1.0. Total bilirubin 0.8, AST 21, ALT 22, albumin 3.4. Urinalysis unremarkable for infection. Chest x-ray shows mild perihilar opacity, which could be due to edema or atypical infection. There is some fullness in the region of the azygos more apparent on this exam. IMPRESSION: 1. Cellulitis and abscess, left posterior thigh. 2. Fever. 3. Multiple ANTIBIOTIC ALLERGIES as mentioned above. She has tolerated cefdinir without problems in the past. 4. Super morbid obesity with a BMI 72. 5. Chronic lymphedema and venous stasis ulcers of lower extremities. PLAN: Continue the vancomycin for now as she is tolerating it at a slow rate. Vancomycin levels may be difficult to achieve due to body habitus. Monitor renal function closely. We will add cefepime and metronidazole. Obtain ultrasound and anaerobic, aerobic culture as well as a set of blood cultures. Continue local wound care. Discussed with the patient's son. Thank you, Dr. Arauz, for asking us to participate in this patient's care. Should you have further questions or concerns, please call. THOMAS BETHEA MD DR: GABY/carmen JOB#: [id number] / [id number]
[2018-09-03 15:28] VITALS: BP 137/72
--- NOTE | 2018-09-03 15:45 | PDOC2 ---
CONSULT Date of Consult Date of Consult DATE: 09/03/18 TIME: 15:40 Reason for Consult Reason for Consult: posterior thigh cellulitis Referring Physician Referring Physician: Davonte Identification/Chief Complaint Chief Complaint post thigh pain Source Source: Caregiver (son), Chart review, Patient History of Present Illness Reason for Visit: 62 yo F with morbid obesity, multiple previous skin abscesses and bilateral l ymphedema, presents with a few day hx of left thigh pain and noted some drainage. Some improvement with abx. Past Medical History Past Medical History super obesity, 450 lbs Cardiovascular: HTN, Hyperlipidemia CENTRAL NERVOUS SYSTEM: Other (back pain) Musculoskeletal: low back pain Dermatology: Other (lymphedema, multiple abscesses) Past Surgical History Past Surgical History: Hysterectomy, Other (shoulder surgery) Family History Family History: No Significant Social History No ALCOHOL: none Current Problem List Problem List Problems Medical Problems: (1) Abscess of left thigh Status: Acute Current Medications Current Medications Current Medications Sodium Chloride 1,000 ml @ 1,000 mls/hr 1X ONCE IV Last administered on 09/02/18at 20:38; Start 09/02/18 at 20:00; Stop 09/02/18 at 20:59; Status DC Vancomycin HCl (Vanco Per Pharmacy) 1 each PRN DAILY PRN MC SEE COMMENTS Last administered on 09/02/18at 21:21; Start 09/02/18 at 19:30 Vancomycin HCl 2 gm/Sodium Chloride 500 ml @ 166.667 mls/hr 1X ONCE IV Last administered on 09/02/18at 20:38; Start 09/02/18 at 20:00; Stop 09/02/18 at 22:59; Status DC Ondansetron HCl (Zofran) 4 mg PRN Q8HRS PRN IV NAUSEA/VOMITING 1ST CHOICE; Start 09/02/18 at 20:45; Stop 09/03/18 at 20:44 Morphine Sulfate (Morphine Sulfate) 2 mg PRN Q2HR PRN IV SEVERE PAIN; Start 09/02/18 at 20:45; Stop 09/03/18 at 20:44 Sodium Chloride 1,000 ml @ 150 mls/hr Q6H40M IV Last administered on 09/03/18at 10:21; Start 09/02/18 at 21:00; Stop 09/03/18 at 20:59 Vancomycin HCl 2 gm/Sodium Chloride 500 ml @ 166.667 mls/hr Q12H IV Last administered on 09/03/18at 10:21; Start 09/03/18 at 09:00 Vancomycin HCl (Vancomycin Trough Level) 1 each 1X ONCE MC ; Start 09/03/18 at 20:30; Stop 09/03/18 at 20:31 Aspirin (Ecotrin) 162 mg DAILY PO Last administered on 09/03/18at 10:22; Start 09/03/18 at 09:00 Acetaminophen/ Hydrocodone Bitart (Lortab 7.5/325) 1 tab PRN Q6HRS PRN PO PAIN Last administered on 09/03/18at 10:23; Start 09/02/18 at 23:45 Losartan Potassium (Cozaar) 25 mg DAILYBFRSUP PO ; Start 09/03/18 at 17:00 Cetirizine HCl (ZyrTEC) 10 mg DAILY PO Last administered on 09/03/18at 10:22; Start 09/03/18 at 09:00 Guaifenesin (Mucinex) 600 mg DAILY PO ; Start 09/03/18 at 09:00 Alprazolam (Xanax) 0.5 mg PRN Q6HRS PRN PO MODERATE ANXIETY/AGITATION; Start 09/02/18 at 23:45 Alprazolam (Xanax) 1 mg PRN Q6HRS PRN PO SEVERE ANXIETY / AGITATION Last administered on 09/03/18at 10:22; Start 09/02/18 at 23:45 Potassium Chloride (Klor-Con) 20 meq 1X ONCE PO Last administered on 09/03/18at 10:22; Start 09/03/18 at 09:30; Stop 09/03/18 at 09:31; Status DC Cefepime HCl (Maxipime) 1 gm Q8HRS IVP ; Start 09/03/18 at 15:00 Metronidazole (Flagyl) 500 mg Q8HRS PO ; Start 09/03/18 at 15:00 Active Scripts Active Reported Zyrtec (Cetirizine Hcl) 10 Mg Tablet 10 Mg PO DAILY Mucinex (Guaifenesin) 100 Mg Gran.pack 200 Mg PO DAILY Losartan Potassium (Losartan Potassium) 25 Mg Tablet 25 Mg PO DAILYBFRSUP Hydrocodone-Apap 7.5-325 (Hydrocodone Bit/Acetaminophen) 1 Each Tablet 1 Tab PO PRN Q6HRS PRN Vitamin D (Cholecalciferol (Vitamin D3)) 5,000 Unit Tablet 5,000 Unit PO Aspir 81 (Aspirin) 81 Mg Tablet. 2 Tab PO DAILY Allergies Allergies: Coded Allergies: NSAIDS (Non-Steroidal Anti-Inflamma (Verified Allergy, Intermediate, 09/02/18) Penicillins (Verified Allergy, Intermediate, Rash, 09/02/18) ciprofloxacin (Verified Allergy, Intermediate, 09/02/18) doxycycline (Verified Allergy, Intermediate, Rash, 09/02/18) levofloxacin (Verified Allergy, Intermediate, 09/02/18) vancomycin (Verified Allergy, Intermediate, Rash, 09/02/18) RED MAN SYNDROME ROS Skin: Yes Other (abscess and pain, lymphedema) Physical Exam General: Alert, Oriented X3, Cooperative, No acute distress HEENT: Atraumatic Lungs: Normal air movement Abdomen: Soft, No tenderness Skin: Other (BLE lymphedema, posterior thigh 3 cm area of redish discoloration of indurated tissue, no fluctuance.) Neuro: Normal speech, Sensation intact Psych/Mental Status: Mental status NL, Mood NL Vitals VITALS Vital Signs Date Time Temp Pulse Resp B/P (MAP) Pulse Ox O2 Delivery O2 Flow Rate FiO2 09/03/18 15:28 98.6 86 21 137/72 (93) 95 Room Air 98.6 Labs Labs Laboratory Tests Test 09/02/18 19:10 09/02/18 20:00 09/03/18 04:00 Urine Collection Type Unknown Urine Color Yellow Urine Clarity Clear Urine pH 7.0 Urine Specific [place] 1.015 Urine Protein Negative mg/dL (NEG-TRACE) Urine Glucose (UA) Negative mg/dL (NEG) Urine Ketones (Stick) Negative mg/dL (NEG) Urine Blood Trace (NEG) Urine Nitrite Negative (NEG) Urine Bilirubin Negative (NEG) Urine Urobilinogen Dipstick 0.2 mg/dL (0.2 mg/dL) Urine Leukocyte Esterase Trace (NEG) Urine RBC 1-2 /HPF (0-2) Urine WBC 1-4 /HPF (0-4) Urine Squamous Epithelial Cells Mod /LPF Urine Bacteria Few /HPF (0-FEW) White Blood Count 8.4 x10^3/uL (4.0-11.0) 7.4 x10^3/uL (4.0-11.0) Red Blood Count 4.56 x10^6/uL (3.50-5.40) 4.16 x10^6/uL (3.50-5.40) Hemoglobin 12.5 g/dL (12.0-15.5) 11.4 g/dL (12.0-15.5) Hematocrit 38.0 % (36.0-47.0) 35.0 % (36.0-47.0) Mean Corpuscular Volume 83 fL (79-100) 84 fL (79-100) Mean Corpuscular Hemoglobin 27 pg (25-35) 27 pg (25-35) Mean Corpuscular Hemoglobin Concent 33 g/dL (31-37) 33 g/dL (31-37) Red Cell Distribution Width 14.1 % (11.5-14.5) 14.2 % (11.5-14.5) Platelet Count 234 x10^3/uL (140-400) 222 x10^3/uL (140-400) Neutrophils (%) (Auto) 68 % (31-73) 56 % (31-73) Lymphocytes (%) (Auto) 21 % (24-48) 31 % (24-48) Monocytes (%) (Auto) 10 % (0-9) 12 % (0-9) Eosinophils (%) (Auto) 0 % (0-3) 1 % (0-3) Basophils (%) (Auto) 1 % (0-3) 0 % (0-3) Neutrophils # (Auto) 5.7 x10^3uL (1.8-7.7) 4.1 x10^3uL (1.8-7.7) Lymphocytes # (Auto) 1.8 x10^3/uL (1.0-4.8) 2.3 x10^3/uL (1.0-4.8) Monocytes # (Auto) 0.8 x10^3/uL (0.0-1.1) 0.9 x10^3/uL (0.0-1.1) Eosinophils # (Auto) 0.0 x10^3/uL (0.0-0.7) 0.0 x10^3/uL (0.0-0.7) Basophils # (Auto) 0.1 x10^3/uL (0.0-0.2) 0.0 x10^3/uL (0.0-0.2) Sodium Level 135 mmol/L (136-145) 140 mmol/L (136-145) Potassium Level 3.9 mmol/L (3.5-5.1) 3.5 mmol/L (3.5-5.1) Chloride Level 99 mmol/L (98-107) 104 mmol/L (98-107) Carbon Dioxide Level 26 mmol/L (21-32) 27 mmol/L (21-32) Anion Gap 10 (6-14) 9 (6-14) Blood Urea Nitrogen 11 mg/dL (7-20) 8 mg/dL (7-20) Creatinine 0.9 mg/dL (0.6-1.0) 0.7 mg/dL (0.6-1.0) Estimated GFR (Cockcroft-Gault) 63.7 85.1 BUN/Creatinine Ratio 12 (6-20) Glucose Level 115 mg/dL (70-99) 110 mg/dL (70-99) Lactic Acid Level 1.0 mmol/L (0.4-2.0) Calcium Level 9.4 mg/dL (8.5-10.1) 8.8 mg/dL (8.5-10.1) Total Bilirubin 0.8 mg/dL (0.2-1.0) Aspartate Amino Transf (AST/SGOT) 21 U/L (15-37) Alanine Aminotransferase (ALT/SGPT) 22 U/L (14-59) Alkaline Phosphatase 90 U/L (46-116) Creatine Kinase 151 U/L (26-192) Total Protein 8.1 g/dL (6.4-8.2) Albumin 3.4 g/dL (3.4-5.0) Albumin/Globulin Ratio 0.7 (1.0-1.7) Laboratory Tests Test 09/02/18 19:10 09/02/18 20:00 09/03/18 04:00 Urine Collection Type Unknown Urine Color Yellow Urine Clarity Clear Urine pH 7.0 Urine Specific [place] 1.015 Urine Protein Negative mg/dL (NEG-TRACE) Urine Glucose (UA) Negative mg/dL (NEG) Urine Ketones (Stick) Negative mg/dL (NEG) Urine Blood Trace (NEG) Urine Nitrite Negative (NEG) Urine Bilirubin Negative (NEG) Urine Urobilinogen Dipstick 0.2 mg/dL (0.2 mg/dL) Urine Leukocyte Esterase Trace (NEG) Urine RBC 1-2 /HPF (0-2) Urine WBC 1-4 /HPF (0-4) Urine Squamous Epithelial Cells Mod /LPF Urine Bacteria Few /HPF (0-FEW) White Blood Count 8.4 x10^3/uL (4.0-11.0) 7.4 x10^3/uL (4.0-11.0) Red Blood Count 4.56 x10^6/uL (3.50-5.40) 4.16 x10^6/uL (3.50-5.40) Hemoglobin 12.5 g/dL (12.0-15.5) 11.4 g/dL (12.0-15.5) Hematocrit 38.0 % (36.0-47.0) 35.0 % (36.0-47.0) Mean Corpuscular Volume 83 fL (79-100) 84 fL (79-100) Mean Corpuscular Hemoglobin 27 pg (25-35) 27 pg (25-35) Mean Corpuscular Hemoglobin Concent 33 g/dL (31-37) 33 g/dL (31-37) Red Cell Distribution Width 14.1 % (11.5-14.5) 14.2 % (11.5-14.5) Platelet Count 234 x10^3/uL (140-400) 222 x10^3/uL (140-400) Neutrophils (%) (Auto) 68 % (31-73) 56 % (31-73) Lymphocytes (%) (Auto) 21 % (24-48) 31 % (24-48) Monocytes (%) (Auto) 10 % (0-9) 12 % (0-9) Eosinophils (%) (Auto) 0 % (0-3) 1 % (0-3) Basophils (%) (Auto) 1 % (0-3) 0 % (0-3) Neutrophils # (Auto) 5.7 x10^3uL (1.8-7.7) 4.1 x10^3uL (1.8-7.7) Lymphocytes # (Auto) 1.8 x10^3/uL (1.0-4.8) 2.3 x10^3/uL (1.0-4.8) Monocytes # (Auto) 0.8 x10^3/uL (0.0-1.1) 0.9 x10^3/uL (0.0-1.1) Eosinophils # (Auto) 0.0 x10^3/uL (0.0-0.7) 0.0 x10^3/uL (0.0-0.7) Basophils # (Auto) 0.1 x10^3/uL (0.0-0.2) 0.0 x10^3/uL (0.0-0.2) Sodium Level 135 mmol/L (136-145) 140 mmol/L (136-145) Potassium Level 3.9 mmol/L (3.5-5.1) 3.5 mmol/L (3.5-5.1) Chloride Level 99 mmol/L (98-107) 104 mmol/L (98-107) Carbon Dioxide Level 26 mmol/L (21-32) 27 mmol/L (21-32) Anion Gap 10 (6-14) 9 (6-14) Blood Urea Nitrogen 11 mg/dL (7-20) 8 mg/dL (7-20) Creatinine 0.9 mg/dL (0.6-1.0) 0.7 mg/dL (0.6-1.0) Estimated GFR (Cockcroft-Gault) 63.7 85.1 BUN/Creatinine Ratio 12 (6-20) Glucose Level 115 mg/dL (70-99) 110 mg/dL (70-99) Lactic Acid Level 1.0 mmol/L (0.4-2.0) Calcium Level 9.4 mg/dL (8.5-10.1) 8.8 mg/dL (8.5-10.1) Total Bilirubin 0.8 mg/dL (0.2-1.0) Aspartate Amino Transf (AST/SGOT) 21 U/L (15-37) Alanine Aminotransferase (ALT/SGPT) 22 U/L (14-59) Alkaline Phosphatase 90 U/L (46-116) Creatine Kinase 151 U/L (26-192) Total Protein 8.1 g/dL (6.4-8.2) Albumin 3.4 g/dL (3.4-5.0) Albumin/Globulin Ratio 0.7 (1.0-1.7) Assessment/Plan Assessment/Plan Left posterior thigh cellulitis agree with US cont abx and will consult wound care regarding local wound care and lymphedema treatment strongly recommend weight loss. Thanks for consult! STACEY NICHOLSON MD Sep 03, 2018 15:45
[2018-09-03] MEDS: VANCOMYCIN PER PHARMACY MC PRN ×2 (15:46→23:24)
--- NOTE | 2018-09-03 16:12 | RAD ---
EXT NON VASC LEFT History: Open wound of left posterior thigh Comparison: None. Findings: Multiple sonographic images of the posterior left thigh region are submitted. In the area of concern, there is a 1.7 x 1.3 x 0.5 cm hypoechoic collection, internal echoes present. This is not associated with significant hypervascularity. Impression: 1. There is a small complex collection in the left posterior thigh region in the soft tissues, could be an abscess. Electronically signed by: Rj Brooks MD (09/03/2018 4:09 PM) [facility]
--- NOTE | 2018-09-03 16:35 | NUR ---
pt refuses for us to take a look at her legs for wound pics. she also will not let us look at the abscess on her inner thigh, so needless to say there are no wound pics for this pt. she informed us that the only people that knew the correct way to unwrap/rewrap her wounds were wound care and her children. Tr Alfaro RN
[2018-09-03] MEDS: LOSARTAN POTASSIUM 25 MG TABLET. PO SCH (18:33)
[2018-09-03] MEDS: CEFEPIME HCL IV Push 1 GM VIAL. IVP SCH ×2 (18:33→22:00)
[2018-09-03] MEDS: metroNIDAZOLE 500 MG TABLET PO SCH ×2 (18:35→22:00)
[2018-09-03 19:00] VITALS: BP 138/68
[2018-09-03] MEDS: LACTOBACILLUS RHAMNOSUS GG 1 CAPSULE. PO SCH (19:50)
[2018-09-03 23:00] VITALS: BP 128/55
--- NOTE | 2018-09-03 23:24 | NUR ---
Pharmacy Vancomycin Dosing Note S:Consulted to monitor and dose vancomycin started 09/02/18. O:RAFIA MALHOTRA is a 62 year old F with Cellulitis . Height: 5 feet, 7 inches Weight: 208.667188 kg [place] Body Weight: 61.60 Adjusted Body Weight: 120.24 Dosing Weight: Adjusted Other Antibiotics: cefepime flagyl PO LABS: Last BUN: 8 Last Creatinine: 0.7 Creatinine Clearance: >100 mL/min Last WBC: 7.4 Last Procalcitonin: Tmax (past 24 hours): AFEBRILE Microbiology: I/O: Drug Levels: Last level: on at Last dose given 09/03/18 at 1021 Vancomycin Dosing: Loading Dose: 2000 mg x1 Dosing Weight: Adjusted Target Trough: 10-20 A: Based on: INVALID TROUGH P: 1. Continue Vancomycin 2000 mg IV q12h 2. Follow up Trough level on 09/04/18 at 0830 3. Pharmacy will continue to monitor, follow and adjust therapy as needed. ALEM STEIN RPH, 09/03/18 [id number] Signed: 09/03/18 at 2325 by ALEM STEIN RPH PHA
[2018-09-04 03:00] VITALS: BP 141/63
[2018-09-04] MEDS: HYDROcodone/APAP 7.5/325MG 1 TAB TABLET PO PRN (05:29)
[2018-09-04] MEDS: metroNIDAZOLE 500 MG TABLET PO SCH ×2 (05:29→14:00)
[2018-09-04] MEDS: CEFEPIME HCL IV Push 1 GM VIAL. IVP SCH ×2 (05:32→14:00)
[2018-09-04 07:00] VITALS: BP 137/57
[2018-09-04] MEDS ORDERED: HYDROcodone/APAP 7.5/325MG 1 TAB TABLET PO PRN (08:15)
[2018-09-04] MEDS: LACTOBACILLUS RHAMNOSUS GG 1 CAPSULE. PO SCH (08:32)
[2018-09-04] MEDS: CETIRIZINE HCL 10 MG TABLET. PO SCH (08:32)
[2018-09-04] MEDS: ASPIRIN ENTERIC COATED 81 MG TABLET.DR. PO SCH (08:32)
--- NOTE | 2018-09-04 09:02 | PDOC ---
SURGICAL PROGRESS NOTE Subjective pain where wound is drainage Vital Signs Vital Signs Date Time Temp Pulse Resp B/P (MAP) Pulse Ox O2 Delivery O2 Flow Rate FiO2 09/04/18 08:31 18 Room Air 09/04/18 07:00 98.4 73 137/57 (83) 97 98.4 I&O Intake and Output 09/04/18 06:59 Intake Total 1500 ml Balance 1500 ml Intake Oral 1500 ml # Voids 4 General: Alert, Oriented X3, Cooperative, No acute distress Extremities: Other (left posterior thigh, small wound, some serosang drainage, no necrosis, + erythema and tenderness on exam ) Labs Laboratory Tests Test 09/02/18 19:10 09/02/18 20:00 09/03/18 04:00 09/03/18 20:35 Urine Collection Type Unknown Urine Color Yellow Urine Clarity Clear Urine pH 7.0 Urine Specific [place] 1.015 Urine Protein Negative mg/dL (NEG-TRACE) Urine Glucose (UA) Negative mg/dL (NEG) Urine Ketones (Stick) Negative mg/dL (NEG) Urine Blood Trace (NEG) Urine Nitrite Negative (NEG) Urine Bilirubin Negative (NEG) Urine Urobilinogen Dipstick 0.2 mg/dL (0.2 mg/dL) Urine Leukocyte Esterase Trace (NEG) Urine RBC 1-2 /HPF (0-2) Urine WBC 1-4 /HPF (0-4) Urine Squamous Epithelial Cells Mod /LPF Urine Bacteria Few /HPF (0-FEW) White Blood Count 8.4 x10^3/uL (4.0-11.0) 7.4 x10^3/uL (4.0-11.0) Red Blood Count 4.56 x10^6/uL (3.50-5.40) 4.16 x10^6/uL (3.50-5.40) Hemoglobin 12.5 g/dL (12.0-15.5) 11.4 g/dL (12.0-15.5) Hematocrit 38.0 % (36.0-47.0) 35.0 % (36.0-47.0) Mean Corpuscular Volume 83 fL (79-100) 84 fL (79-100) Mean Corpuscular Hemoglobin 27 pg (25-35) 27 pg (25-35) Mean Corpuscular Hemoglobin Concent 33 g/dL (31-37) 33 g/dL (31-37) Red Cell Distribution Width 14.1 % (11.5-14.5) 14.2 % (11.5-14.5) Platelet Count 234 x10^3/uL (140-400) 222 x10^3/uL (140-400) Neutrophils (%) (Auto) 68 % (31-73) 56 % (31-73) Lymphocytes (%) (Auto) 21 % (24-48) 31 % (24-48) Monocytes (%) (Auto) 10 % (0-9) 12 % (0-9) Eosinophils (%) (Auto) 0 % (0-3) 1 % (0-3) Basophils (%) (Auto) 1 % (0-3) 0 % (0-3) Neutrophils # (Auto) 5.7 x10^3uL (1.8-7.7) 4.1 x10^3uL (1.8-7.7) Lymphocytes # (Auto) 1.8 x10^3/uL (1.0-4.8) 2.3 x10^3/uL (1.0-4.8) Monocytes # (Auto) 0.8 x10^3/uL (0.0-1.1) 0.9 x10^3/uL (0.0-1.1) Eosinophils # (Auto) 0.0 x10^3/uL (0.0-0.7) 0.0 x10^3/uL (0.0-0.7) Basophils # (Auto) 0.1 x10^3/uL (0.0-0.2) 0.0 x10^3/uL (0.0-0.2) Sodium Level 135 mmol/L (136-145) 140 mmol/L (136-145) Potassium Level 3.9 mmol/L (3.5-5.1) 3.5 mmol/L (3.5-5.1) Chloride Level 99 mmol/L (98-107) 104 mmol/L (98-107) Carbon Dioxide Level 26 mmol/L (21-32) 27 mmol/L (21-32) Anion Gap 10 (6-14) 9 (6-14) Blood Urea Nitrogen 11 mg/dL (7-20) 8 mg/dL (7-20) Creatinine 0.9 mg/dL (0.6-1.0) 0.7 mg/dL (0.6-1.0) Estimated GFR (Cockcroft-Gault) 63.7 85.1 BUN/Creatinine Ratio 12 (6-20) Glucose Level 115 mg/dL (70-99) 110 mg/dL (70-99) Lactic Acid Level 1.0 mmol/L (0.4-2.0) Calcium Level 9.4 mg/dL (8.5-10.1) 8.8 mg/dL (8.5-10.1) Total Bilirubin 0.8 mg/dL (0.2-1.0) Aspartate Amino Transf (AST/SGOT) 21 U/L (15-37) Alanine Aminotransferase (ALT/SGPT) 22 U/L (14-59) Alkaline Phosphatase 90 U/L (46-116) Creatine Kinase 151 U/L (26-192) Total Protein 8.1 g/dL (6.4-8.2) Albumin 3.4 g/dL (3.4-5.0) Albumin/Globulin Ratio 0.7 (1.0-1.7) Vancomycin Level Trough 35.0 mcg/mL (10.0-20.0) Vancomycin Last Dose Date 09/03/18 Vancomycin Last Dose Time 0900 Laboratory Tests Test 09/03/18 20:35 Vancomycin Level Trough 35.0 mcg/mL (10.0-20.0) Vancomycin Last Dose Date 09/03/18 Vancomycin Last Dose Time 0900 Problem List Problems Medical Problems: (1) Abscess of left thigh Status: Acute Assessment/Plan wound care, WARREN Burns APRN Sep 04, 2018 09:02
[2018-09-04 09:11] LABS: VANC TR 15.8 mcg/mL (10.0-20.0)
[2018-09-04] MEDS: VANCOMYCIN PER PHARMACY MC PRN ×2 (09:37→09:43)
--- NOTE | 2018-09-04 09:45 | NUR ---
Pharmacy Vancomycin Dosing Note S:Consulted to monitor and dose vancomycin started 09/02/18. O:RAFIA MALHOTRA is a 62 year old F with Cellulitis . Height: 5 feet, 7 inches Weight: 208.188416 kg [place] Body Weight: 61.60 Adjusted Body Weight: 120.24 Dosing Weight: Adjusted Other Antibiotics: cefepime flagyl PO LABS: Last BUN: 8 Last Creatinine: 0.7 Creatinine Clearance: >100 mL/min Last WBC: 7.4 Last Procalcitonin: Tmax (past 24 hours): AFEBRILE Microbiology: NONE I/O: Drug Levels: Last Trough level: 15.8 on 09/04/18 at 0830 Last dose given 09/03/18 at 1951 Vancomycin Dosing: Loading Dose: 2000 mg x1 Dosing Weight: Adjusted Target Trough: 10-20 A: Based on: therapeutic trough for indication, P: 1. Continue Vancomycin 2000 mg IV q12h 2. Follow up Trough level as needed 3. Pharmacy will continue to monitor, follow and adjust therapy as needed. MIRTA ESPINO [facility], 09/04/18 0921
[2018-09-04] MEDS: VANCOMYCIN 2 GM in IV NORMAL SALINE 500ML BAG 500 ML IV SCH (09:47)
[2018-09-04 11:00] VITALS: BP 124/43
--- NOTE | 2018-09-04 12:06 | PDOC ---
Infectious Disease Note Subjective Subjective feeling ok ROS ROS no n/v/d/sob Vital Sign Vital Signs Vital Signs Date Time Temp Pulse Resp B/P (MAP) Pulse Ox O2 Delivery O2 Flow Rate FiO2 09/04/18 11:00 98.1 78 20 124/43 (70) 94 Room Air 98.1 Physical Exam PHYSICAL EXAM GENERAL: The patient is sitting in a chair, alert, in no apparent distress. HEENT: Pupils equally round. Normal conjunctivae. Oral cavity: Pharynx pink and moist. NECK: Supple. LUNGS: Clear to auscultation. HEART: Distant heart tones. ABDOMEN: Obese, soft and nontender with bowel sounds present. EXTREMITIES: The patient has compressions on lower extremities bilaterally for which she did not want me to remove. On her left posterior thigh, she has an area of induration and redness with drainage. SKIN: Warm without rash. NEUROLOGIC: Alert and oriented x 3. Labs Lab Laboratory Tests Test 09/03/18 20:35 09/04/18 08:30 Vancomycin Level Trough 35.0 mcg/mL (10.0-20.0) 15.8 mcg/mL (10.0-20.0) Vancomycin Last Dose Date 09/03/18 09/03/18 Vancomycin Last Dose Time 0900 2100 Objective Assessment Cellulitis and abscess left posterior thigh Fever Multiple abx allergies: PCN w/ blotching of skin after one dose at age 6. Has tolerated Cefdinir wo problems Doxy w/ hives Levaquin and Cipro w/ joint pains Vancomycin w/ Migue's syndrome if given too fast Super morbid obesity, BMI 72 Chronic lymphedema and venous stasis ulcers lower extremities. Plan Plan of Care Continue vancomycin for now as she is tolerating it at a slow rate May be difficult to achieve vanc levels due to body habitus Monitor renal function closely. Add Cefepime and Flagyl Obtain an US and anaerobic-aerobic culture Also will get a set of blood cultures Local wound care Thank you [id number] OMER BETHEA MD Sep 04, 2018 12:06
--- NOTE | 2018-09-04 12:35 | PDOC ---
PROGRESS NOTES Chief Complaint Chief Complaint sepsis Right posterior thigh abscess. morbid obesity, BMI 75 chronic hip and leg and back pain, History of Present Illness History of Present Illness PT and OT and wound care and lymph therapy IV abx, ID consult gen surg consult, may benefit from I+D from appearance, Vitals Vitals Vital Signs Date Time Temp Pulse Resp B/P (MAP) Pulse Ox O2 Delivery O2 Flow Rate FiO2 09/04/18 11:00 98.1 78 20 124/43 (70) 94 Room Air 98.1 Physical Exam Physical Exam GENERAL: The patient is sitting in a chair, alert, in no apparent distress. HEENT: Pupils equally round. Normal conjunctivae. Oral cavity: Pharynx pink and moist. NECK: Supple. LUNGS: Clear to auscultation. HEART: Distant heart tones. ABDOMEN: Obese, soft and nontender with bowel sounds present. EXTREMITIES: The patient has compressions on lower extremities bilaterally for which she did not want me to remove. On her left posterior thigh, she has an area of induration and redness with drainage. SKIN: Warm without rash. NEUROLOGIC: Alert and oriented x 3. General: Alert, Oriented X3, Cooperative, No acute distress Heart: Normal S1, Normal S2 Abdomen: Soft, No tenderness Extremities: No cyanosis, Other (left posterior thigh, small wound, some serosang drainage, no necrosis, + erythema and tenderness on exam ) Skin: No rashes, Other (BLE lymphedema, posterior thigh 3 cm area of redish discoloration of indurated tissue, no fluctuance.) Labs LABS Laboratory Tests Test 09/03/18 20:35 09/04/18 08:30 Vancomycin Level Trough 35.0 mcg/mL (10.0-20.0) 15.8 mcg/mL (10.0-20.0) Vancomycin Last Dose Date 09/03/18 09/03/18 Vancomycin Last Dose Time 0900 2100 Assessment and Plan Assessmemt and Plan Problems Medical Problems: (1) Abscess of left thigh Status: Acute Comment Review of Relevant I have reviewed the following items kenneth (where applicable) has been applied. Labs Laboratory Tests Test 09/02/18 19:10 09/02/18 20:00 09/03/18 04:00 09/03/18 20:35 Urine Collection Type Unknown Urine Color Yellow Urine Clarity Clear Urine pH 7.0 Urine Specific [place] 1.015 Urine Protein Negative mg/dL (NEG-TRACE) Urine Glucose (UA) Negative mg/dL (NEG) Urine Ketones (Stick) Negative mg/dL (NEG) Urine Blood Trace (NEG) Urine Nitrite Negative (NEG) Urine Bilirubin Negative (NEG) Urine Urobilinogen Dipstick 0.2 mg/dL (0.2 mg/dL) Urine Leukocyte Esterase Trace (NEG) Urine RBC 1-2 /HPF (0-2) Urine WBC 1-4 /HPF (0-4) Urine Squamous Epithelial Cells Mod /LPF Urine Bacteria Few /HPF (0-FEW) White Blood Count 8.4 x10^3/uL (4.0-11.0) 7.4 x10^3/uL (4.0-11.0) Red Blood Count 4.56 x10^6/uL (3.50-5.40) 4.16 x10^6/uL (3.50-5.40) Hemoglobin 12.5 g/dL (12.0-15.5) 11.4 g/dL (12.0-15.5) Hematocrit 38.0 % (36.0-47.0) 35.0 % (36.0-47.0) Mean Corpuscular Volume 83 fL (79-100) 84 fL (79-100) Mean Corpuscular Hemoglobin 27 pg (25-35) 27 pg (25-35) Mean Corpuscular Hemoglobin Concent 33 g/dL (31-37) 33 g/dL (31-37) Red Cell Distribution Width 14.1 % (11.5-14.5) 14.2 % (11.5-14.5) Platelet Count 234 x10^3/uL (140-400) 222 x10^3/uL (140-400) Neutrophils (%) (Auto) 68 % (31-73) 56 % (31-73) Lymphocytes (%) (Auto) 21 % (24-48) 31 % (24-48) Monocytes (%) (Auto) 10 % (0-9) 12 % (0-9) Eosinophils (%) (Auto) 0 % (0-3) 1 % (0-3) Basophils (%) (Auto) 1 % (0-3) 0 % (0-3) Neutrophils # (Auto) 5.7 x10^3uL (1.8-7.7) 4.1 x10^3uL (1.8-7.7) Lymphocytes # (Auto) 1.8 x10^3/uL (1.0-4.8) 2.3 x10^3/uL (1.0-4.8) Monocytes # (Auto) 0.8 x10^3/uL (0.0-1.1) 0.9 x10^3/uL (0.0-1.1) Eosinophils # (Auto) 0.0 x10^3/uL (0.0-0.7) 0.0 x10^3/uL (0.0-0.7) Basophils # (Auto) 0.1 x10^3/uL (0.0-0.2) 0.0 x10^3/uL (0.0-0.2) Sodium Level 135 mmol/L (136-145) 140 mmol/L (136-145) Potassium Level 3.9 mmol/L (3.5-5.1) 3.5 mmol/L (3.5-5.1) Chloride Level 99 mmol/L (98-107) 104 mmol/L (98-107) Carbon Dioxide Level 26 mmol/L (21-32) 27 mmol/L (21-32) Anion Gap 10 (6-14) 9 (6-14) Blood Urea Nitrogen 11 mg/dL (7-20) 8 mg/dL (7-20) Creatinine 0.9 mg/dL (0.6-1.0) 0.7 mg/dL (0.6-1.0) Estimated GFR (Cockcroft-Gault) 63.7 85.1 BUN/Creatinine Ratio 12 (6-20) Glucose Level 115 mg/dL (70-99) 110 mg/dL (70-99) Lactic Acid Level 1.0 mmol/L (0.4-2.0) Calcium Level 9.4 mg/dL (8.5-10.1) 8.8 mg/dL (8.5-10.1) Total Bilirubin 0.8 mg/dL (0.2-1.0) Aspartate Amino Transf (AST/SGOT) 21 U/L (15-37) Alanine Aminotransferase (ALT/SGPT) 22 U/L (14-59) Alkaline Phosphatase 90 U/L (46-116) Creatine Kinase 151 U/L (26-192) Total Protein 8.1 g/dL (6.4-8.2) Albumin 3.4 g/dL (3.4-5.0) Albumin/Globulin Ratio 0.7 (1.0-1.7) Vancomycin Level Trough 35.0 mcg/mL (10.0-20.0) Vancomycin Last Dose Date 09/03/18 Vancomycin Last Dose Time 0900 Test 09/04/18 08:30 Vancomycin Level Trough 15.8 mcg/mL (10.0-20.0) Vancomycin Last Dose Date 09/03/18 Vancomycin Last Dose Time 2100 Laboratory Tests Test 09/03/18 20:35 09/04/18 08:30 Vancomycin Level Trough 35.0 mcg/mL (10.0-20.0) 15.8 mcg/mL (10.0-20.0) Vancomycin Last Dose Date 09/03/18 09/03/18 Vancomycin Last Dose Time 0900 2100 Medications Current Medications Sodium Chloride 1,000 ml @ 1,000 mls/hr 1X ONCE IV Last administered on 09/02/18at 20:38; Start 09/02/18 at 20:00; Stop 09/02/18 at 20:59; Status DC Vancomycin HCl (Vanco Per Pharmacy) 1 each PRN DAILY PRN MC SEE COMMENTS Last administered on 09/04/18at 09:43; Start 09/02/18 at 19:30 Vancomycin HCl 2 gm/Sodium Chloride 500 ml @ 166.667 mls/hr 1X ONCE IV Last administered on 09/02/18at 20:38; Start 09/02/18 at 20:00; Stop 09/02/18 at 22:59; Status DC Ondansetron HCl (Zofran) 4 mg PRN Q8HRS PRN IV NAUSEA/VOMITING 1ST CHOICE; Start 09/02/18 at 20:45; Stop 09/03/18 at 20:44; Status DC Morphine Sulfate (Morphine Sulfate) 2 mg PRN Q2HR PRN IV SEVERE PAIN; Start 09/02/18 at 20:45; Stop 09/03/18 at 20:44; Status DC Sodium Chloride 1,000 ml @ 150 mls/hr Q6H40M IV Last administered on 09/03/18at 18:35; Start 09/02/18 at 21:00; Stop 09/03/18 at 20:59; Status DC Vancomycin HCl 2 gm/Sodium Chloride 500 ml @ 166.667 mls/hr Q12H IV Last administered on 09/04/18 09:47; Start 09/03/18 at 09:00 Vancomycin HCl (Vancomycin Trough Level) 1 each 1X ONCE MC Last administered on 09/03/18at 20:30; Start 09/03/18 at 20:30; Stop 09/03/18 at 20:31; Status DC Aspirin (Ecotrin) 162 mg DAILY PO Last administered on 09/04/18 08:32; Start 09/03/18 at 09:00 Acetaminophen/ Hydrocodone Bitart (Lortab 7.5/325) 1 tab PRN Q6HRS PRN PO PAIN Last administered on 09/03/18 19:49; Start 09/02/18 at 23:45; Stop 09/04/18 at 08:14; Status DC Losartan Potassium (Cozaar) 25 mg DAILYBFRSUP PO Last administered on 09/03/18 18:33; Start 09/03/18 at 17:00 Cetirizine HCl (ZyrTEC) 10 mg DAILY PO Last administered on 09/04/18 08:32; Start 09/03/18 at 09:00 Guaifenesin (Mucinex) 600 mg DAILY PO ; Start 09/03/18 at 09:00 Alprazolam (Xanax) 0.5 mg PRN Q6HRS PRN PO MODERATE ANXIETY/AGITATION; Start 09/02/18 at 23:45 Alprazolam (Xanax) 1 mg PRN Q6HRS PRN PO SEVERE ANXIETY / AGITATION Last administered on 09/03/18at 19:50; Start 09/02/18 at 23:45 Potassium Chloride (Klor-Con) 20 meq 1X ONCE PO Last administered on 09/03/18 10:22; Start 09/03/18 at 09:30; Stop 09/03/18 at 09:31; Status DC Cefepime HCl (Maxipime) 1 gm Q8HRS IVP Last administered on 09/04/18 05:32; Start 09/03/18 at 15:00 Metronidazole (Flagyl) 500 mg Q8HRS PO Last administered on 09/04/18 05:29; Start 09/03/18 at 15:00 Lactobacillus Rhamnosus (Culturelle) 1 cap BID PO Last administered on 09/04/18 08:32; Start 09/03/18 at 21:00 Vancomycin HCl (Vancomycin Trough Level) 1 each 1X ONCE MC Last administered on 09/04/18 08:30; Start 09/04/18 at 08:30; Stop 09/04/18 at 08:31; Status DC Acetaminophen/ Hydrocodone Bitart (Lortab 7.5/325) 0.5 tab PRN Q3HRS PRN PO PAIN Last administered on 09/04/18 08:31; Start 09/04/18 at 08:15 Active Scripts Active Reported Zyrtec (Cetirizine Hcl) 10 Mg Tablet 10 Mg PO DAILY Mucinex (Guaifenesin) 100 Mg Gran.pack 200 Mg PO DAILY Losartan Potassium (Losartan Potassium) 25 Mg Tablet 25 Mg PO DAILYBFRSUP Hydrocodone-Apap 7.5-325 (Hydrocodone Bit/Acetaminophen) 1 Each Tablet 1 Tab PO PRN Q6HRS PRN Vitamin D (Cholecalciferol (Vitamin D3)) 5,000 Unit Tablet 5,000 Unit PO Aspir 81 (Aspirin) 81 Mg Tablet. 2 Tab PO DAILY Vitals/I & O Vital Sign - Last 24 Hours 09/03/18 09/03/18 09/03/18 09/03/18 15:28 18:33 19:00 20:00 Temp 98.6 97.8 98.6 97.8 Pulse 86 86 81 Resp 21 B/P (MAP) 137/72 (93) 137/72 138/68 (91) Pulse Ox 95 94 O2 Delivery Room Air Room Air Room Air 09/03/18 09/03/18 09/04/18 09/04/18 20:49 23:00 03:00 07:00 Temp 98.3 98.1 98.4 98.3 98.1 98.4 Pulse 82 82 73 Resp 21 21 20 B/P (MAP) 128/55 (79) 141/63 (89) 137/57 (83) Pulse Ox 99 95 97 O2 Delivery Room Air Room Air Room Air Room Air 09/04/18 09/04/18 09/04/18 09/04/18 08:00 08:31 09:32 11:00 Temp 98.1 98.1 Pulse 78 Resp 18 20 B/P (MAP) 124/43 (70) Pulse Ox 97 94 O2 Delivery Room Air Room Air Room Air Room Air Intake and Output 09/03/18 09/03/18 09/04/18 14:59 22:59 06:59 Intake Total 700 ml 600 ml 200 ml Balance 700 ml 600 ml 200 ml KRISTIE FLORES MD Sep 04, 2018 12:35
[2018-09-04] MEDS ORDERED: CEFD300C PO (12:40)
--- NOTE | 2018-09-04 13:12 | SNU/HH DC ---
DISCHARGE WITH HOME HEALTH DISCHARGE INFORMATION: Discharge Date: Sep 04, 2018 Final Diagnosis: Problems Medical Problems: (1) Abscess of left thigh Status: Acute Condition on Discharge: Stable CODE STATUS: Code Status: Full HOME HEALTH: Face to Face: I certify this patient is under my care and that I, or a nurse practitioner or physician's prosthetics assistant working with me, had a face to face encounter that meets the physician face to face encounter requirements with this patient on 09/04 [facility] For: Wound Care, Other: RN For Eval/Treatment: Yes Home Health Aide For: Self-care Pt Meets Homebound Status: Limited distance walking POST DISCHARGE ORDERS: Activity Instructions for Disc: Activity as tolerated Weight Bearing Status after Di: As tolerated DIET AFTER DISCHARGE: Regular FOLLOW-UP: Follow up with: Dr. Billy next avail CERTIFICATION STATEMENT: Certification Statement: Certification Statement: Based on the above finding, I certify that this patient is confined to the home and needs intermittent assisted care, physical therapy and/or speech therapy, or continues to need occupational therapy.~ This patient is under my care, and I have initiated the establishment of the plan of care.~ This patient will be followed by myself or a community physician who will periodically review the plan of care. Home Meds Active Scripts Cefdinir (CEFDINIR) 300 Mg Capsule, 1 CAP PO BID for cellulitis, #14 CAP Prov:KRISTIE FLORES MD 09/04/18 Reported Medications Cetirizine Hcl (ZYRTEC) 10 Mg Tablet, 10 MG PO DAILY for allergy prevention, TAB 09/02/18 Guaifenesin (MUCINEX) 100 Mg Gran.pack, 200 MG PO DAILY for allergies, PKT 09/02/18 Losartan Potassium (LOSARTAN POTASSIUM ) 25 Mg Tablet, 25 MG PO DAILYBFRSUP for HYPERTENSION, TAB 09/02/18 Hydrocodone Bit/Acetaminophen (HYDROCODONE-APAP 7.5-325 ) 1 Each Tablet, 1 TAB PO PRN Q6HRS PRN for PAIN, TAB 0 Refills 08/27/15 Cholecalciferol (Vitamin D3) (VITAMIN D) 5,000 Unit Tablet, 5000 UNIT PO 08/27/15 Aspirin (ASPIR 81) 81 Mg Tablet.dr, 2 TAB PO DAILY, #90 TAB 3 Refills 08/27/15 KRISTIE FLORES MD Sep 04, 2018 13:12
--- NOTE | 2018-09-04 13:15 | PDOC3 ---
Discharge Summary Visit Information Date of Admission: Sep 02, 2018 Date of Discharge: Sep 04, 2018 Final Diagnosis sepsis Right posterior thigh abscess. morbid obesity, BMI 75 chronic hip and leg and back pain, Problems Medical Problems: (1) Abscess of left thigh Status: Acute Brief Hospital Course Allergies Allergies Coded Allergies Type Severity Reaction Last Updated Verified NSAIDS (Non-Steroidal Anti-Inflamma Allergy Intermediate 09/02/18 Yes Penicillins Allergy Intermediate Rash 09/03/18 Yes ciprofloxacin Allergy Intermediate 09/02/18 Yes doxycycline Allergy Intermediate Rash 09/02/18 Yes levofloxacin Allergy Intermediate 09/02/18 Yes vancomycin Allergy Intermediate Rash 09/03/18 Yes Vital Signs Vital Signs Date Time Temp Pulse Resp B/P (MAP) Pulse Ox O2 Delivery O2 Flow Rate FiO2 09/04/18 11:00 98.1 78 20 124/43 (70) 94 Room Air 98.1 Lab Results Laboratory Tests Test 09/02/18 19:10 09/02/18 20:00 09/03/18 04:00 09/03/18 20:35 Urine Collection Type Unknown Urine Color Yellow Urine Clarity Clear Urine pH 7.0 Urine Specific [place] 1.015 Urine Protein Negative mg/dL (NEG-TRACE) Urine Glucose (UA) Negative mg/dL (NEG) Urine Ketones (Stick) Negative mg/dL (NEG) Urine Blood Trace (NEG) Urine Nitrite Negative (NEG) Urine Bilirubin Negative (NEG) Urine Urobilinogen Dipstick 0.2 mg/dL (0.2 mg/dL) Urine Leukocyte Esterase Trace (NEG) Urine RBC 1-2 /HPF (0-2) Urine WBC 1-4 /HPF (0-4) Urine Squamous Epithelial Cells Mod /LPF Urine Bacteria Few /HPF (0-FEW) White Blood Count 8.4 x10^3/uL (4.0-11.0) 7.4 x10^3/uL (4.0-11.0) Red Blood Count 4.56 x10^6/uL (3.50-5.40) 4.16 x10^6/uL (3.50-5.40) Hemoglobin 12.5 g/dL (12.0-15.5) 11.4 g/dL (12.0-15.5) Hematocrit 38.0 % (36.0-47.0) 35.0 % (36.0-47.0) Mean Corpuscular Volume 83 fL (79-100) 84 fL (79-100) Mean Corpuscular Hemoglobin 27 pg (25-35) 27 pg (25-35) Mean Corpuscular Hemoglobin Concent 33 g/dL (31-37) 33 g/dL (31-37) Red Cell Distribution Width 14.1 % (11.5-14.5) 14.2 % (11.5-14.5) Platelet Count 234 x10^3/uL (140-400) 222 x10^3/uL (140-400) Neutrophils (%) (Auto) 68 % (31-73) 56 % (31-73) Lymphocytes (%) (Auto) 21 % (24-48) 31 % (24-48) Monocytes (%) (Auto) 10 % (0-9) 12 % (0-9) Eosinophils (%) (Auto) 0 % (0-3) 1 % (0-3) Basophils (%) (Auto) 1 % (0-3) 0 % (0-3) Neutrophils # (Auto) 5.7 x10^3uL (1.8-7.7) 4.1 x10^3uL (1.8-7.7) Lymphocytes # (Auto) 1.8 x10^3/uL (1.0-4.8) 2.3 x10^3/uL (1.0-4.8) Monocytes # (Auto) 0.8 x10^3/uL (0.0-1.1) 0.9 x10^3/uL (0.0-1.1) Eosinophils # (Auto) 0.0 x10^3/uL (0.0-0.7) 0.0 x10^3/uL (0.0-0.7) Basophils # (Auto) 0.1 x10^3/uL (0.0-0.2) 0.0 x10^3/uL (0.0-0.2) Sodium Level 135 mmol/L (136-145) 140 mmol/L (136-145) Potassium Level 3.9 mmol/L (3.5-5.1) 3.5 mmol/L (3.5-5.1) Chloride Level 99 mmol/L (98-107) 104 mmol/L (98-107) Carbon Dioxide Level 26 mmol/L (21-32) 27 mmol/L (21-32) Anion Gap 10 (6-14) 9 (6-14) Blood Urea Nitrogen 11 mg/dL (7-20) 8 mg/dL (7-20) Creatinine 0.9 mg/dL (0.6-1.0) 0.7 mg/dL (0.6-1.0) Estimated GFR (Cockcroft-Gault) 63.7 85.1 BUN/Creatinine Ratio 12 (6-20) Glucose Level 115 mg/dL (70-99) 110 mg/dL (70-99) Lactic Acid Level 1.0 mmol/L (0.4-2.0) Calcium Level 9.4 mg/dL (8.5-10.1) 8.8 mg/dL (8.5-10.1) Total Bilirubin 0.8 mg/dL (0.2-1.0) Aspartate Amino Transf (AST/SGOT) 21 U/L (15-37) Alanine Aminotransferase (ALT/SGPT) 22 U/L (14-59) Alkaline Phosphatase 90 U/L (46-116) Creatine Kinase 151 U/L (26-192) Total Protein 8.1 g/dL (6.4-8.2) Albumin 3.4 g/dL (3.4-5.0) Albumin/Globulin Ratio 0.7 (1.0-1.7) Vancomycin Level Trough 35.0 mcg/mL (10.0-20.0) Vancomycin Last Dose Date 09/03/18 Vancomycin Last Dose Time 0900 Test 09/04/18 08:30 Vancomycin Level Trough 15.8 mcg/mL (10.0-20.0) Vancomycin Last Dose Date 09/03/18 Vancomycin Last Dose Time 2100 Laboratory Tests Test 09/03/18 20:35 09/04/18 08:30 Vancomycin Level Trough 35.0 mcg/mL (10.0-20.0) 15.8 mcg/mL (10.0-20.0) Vancomycin Last Dose Date 09/03/18 09/03/18 Vancomycin Last Dose Time 0900 2100 Brief Hospital Course Ms. Galvin is a 62 old admit with leg pain, small abcess, to left post thigh iv abx, surg eval, area improved Discharge Information Condition at Discharge: Improved Follow Up: Weeks Disposition/Orders: D/C to Home w/ HH Scheduled Aspirin (Aspir 81) 81 Mg Tablet.dr, 2 TAB PO DAILY, #90 Ref 3 (Reported) Entered as Reported by: ROBERT REYES on 08/27/151632 Last Action: Continued on 09/02/182338 by TOMMY LEVY Cefdinir (Cefdinir) 300 Mg Capsule, 1 CAP PO BID for cellulitis, #14 Prescribed by: KRISTIE FLORES on 09/04/18 1240 Cetirizine Hcl (Zyrtec) 10 Mg Tablet, 10 MG PO DAILY for allergy prevention, (Reported) Entered as Reported by: TOMMY LEVY on 09/02/182339 Last Action: Continued on 09/02/182339 by TOMMY LEVY Guaifenesin (Mucinex) 100 Mg Gran.pack, 200 MG PO DAILY for allergies, (Reported) Entered as Reported by: TOMMY LEVY on 09/02/182339 Last Action: Converted on 09/02/182339 by TOMMY LEVY Losartan Potassium (Losartan Potassium ) 25 Mg Tablet, 25 MG PO DAILYBFRSUP for HYPERTENSION, (Reported) Entered as Reported by: TOMMY LEVY on 09/02/182151 Last Action: Continued on 09/02/182338 by TOMMY LEVY Scheduled PRN Hydrocodone Bit/Acetaminophen (Hydrocodone-Apap 7.5-325 ) 1 Each Tablet, 1 TAB PO PRN Q6HRS PRN for PAIN, Ref 0 (Reported) Entered as Reported by: ROBERT REYES on 08/27/151632 Last Action: Continued on 09/02/182338 by TOMMY LEVY Miscellaneous Medications Cholecalciferol (Vitamin D3) (Vitamin D) 5,000 Unit Tablet, 5,000 UNIT PO, (Reported) Entered as Reported by: RBOERT REYES on 08/27/151632 Last Action: Reviewed on 09/02/182151 by TOMMY LEVY Patient Instructions Patient Instructions PT and OT and wound care and lymph therapy IV abx, ID consult gen surg consult, may benefit from I+D from appearance, > 30 min face to face KRISTIE FLORES MD Sep 04, 2018 13:15
--- NOTE | 2018-09-04 15:50 | NUR ---
SW following pt. Spoke with pt regarding HH options and pt reports she had 'used so many agencies and none of them want her back'. Pt agreeable with [facility]. SW phoned and faxed orders to [facility] and they will see pt on Tuesday. Pt had some concerns and agreeable to speak with Patient advocate. Pt reported she needed transportation and SW arranged transport via [facility] at 1730 as pt is over weight limit for w/c van and [facility]. Pt was in shower and SW was unable to present choice and rights forms. SHIVA LOWERY.
[2018-09-04] MEDS: LOSARTAN POTASSIUM 25 MG TABLET. PO SCH (17:00)
--- NOTE | 2018-09-04 17:15 | NUR ---
Wound care: Patient seen per wound care. Patient has lymphedema to left lower leg. Wound cleansed and assessed. Wound care measured and pictured earlier today. Recommendations for aquacel ag, absorbant pad, and tape. Patient is discharging today and has home health. Patient also has own compression garmet. Dressing applied and patient tolerated well. Patient farrow wrap placed on. No other wounds noted at this time. Call light in reach and nurse at bedside assisting wound care.
--- NOTE | 2018-09-04 19:18 | NUR ---
Discharge Note: RAFIA MALHOTRA [address] [place] [address] Discharge instructions and discharge home medications reviewed with Patient and a copy given. All questions have been answered and understanding verbalized. The following instructions and handouts were given: Diet, activity, medication list and follow up instructions provided. Discontinued lines and drains: Peripheral IV discontinued and catheter intact. Patient discharged to Home w/services with Family Member via Wheelchair
[2018-09-04] MEDS ORDERED: CEFDINIR 300 MG CAPSULE PO SCH (21:00)
== END 2018-09-04 19:00 | disposition home health service (06) | DRG 872 ==
LOC: ER 18:55 → 6 SOUTH 20:00
PROVIDERS: ADMIT Internal Medicine; ATTEND Internal Medicine
DX: A41.9 Sepsis, unspecified organism (principal); L02.416 Cutaneous abscess of left lower limb; Z68.45 Body mass index [BMI] 70 or greater, adult; L03.116 Cellulitis of left lower limb; L02.415 Cutaneous abscess of right lower limb; L97.919 Non-pressure chronic ulcer of unspecified part of right lower leg with unspecified severity; L97.929 Non-pressure chronic ulcer of unspecified part of left lower leg with unspecified severity; E66.01 Morbid (severe) obesity due to excess calories; E78.00 Pure hypercholesterolemia, unspecified; E78.5 Hyperlipidemia, unspecified; I10 Essential (primary) hypertension; I83.019 Varicose veins of right lower extremity with ulcer of unspecified site; I83.029 Varicose veins of left lower extremity with ulcer of unspecified site; K21.9 Gastro-esophageal reflux disease without esophagitis; I89.0 Lymphedema, not elsewhere classified; Z82.49 Family history of ischemic heart disease and other diseases of the circulatory system; Z88.1 Allergy status to other antibiotic agents; Z90.711 Acquired absence of uterus with remaining cervical stump; Z88.0 Allergy status to penicillin; F32.9 Major depressive disorder, single episode, unspecified; F41.9 Anxiety disorder, unspecified; Z88.8 Allergy status to other drugs, medicaments and biological substances
CPT/HCPCS: 36415; 71045; 76881; 80048; 80053; 80202; 81001; 82550; 83605; 85025; 87040; 87071; 87075; 87086; 87186; 96365; J0692; J3370; J7030; J7040; 99285-25

== ENCOUNTER → 2021-08-18 | Outpatient (CLI) | payer OTHER ==
[2020-03-18 15:00] VITALS: BP 149/80
[~2021-08-18] MED LIST changes: +ALBU0.63 NEB; +AZIT250T PO; +CEFD300C PO; +CETI10TA16 PO; +CETI10TA74 PO; +ENOX100D3 SQ; +FAMO20TA5 PO; +GUAI100G2 PO; +HYDR-2761 PO; +LOSA25TA54 PO; +PRED-220 PO; +WARF10TA40 PO
--- NOTE | 2021-08-18 15:18 | KCIC ---
EXAM: XR LUMBAR SPINE 2-3V 08/18/2021 9:26 AM CLINICAL INDICATION: Low back pain COMPARISON: None TECHNIQUE: Upright AP, lateral, and coned-down lateral views of the lumbar spine FINDINGS: There r5 nonrib-bearing lumbar vertebral bodies. No acute fracture. Alignment is normal. T here is moderate disc space narrowing with small anterior osteophytes throughout the lumbar spine. Th ere are posterior disc osteophyte complexes at L2-L3 and L3-L4. Mild facet arthrosis. IMPRESSION: Moderate multilevel degenerative disc disease. Electronically signed by: Maricruz Mora MD (08/18/2021 3:16 PM) [id number]
== END ==
LOC: KCIC 09:10
PROVIDERS: ATTEND Internal Medicine
DX: M51.36 Other intervertebral disc degeneration, lumbar region (principal); M48.061 Spinal stenosis, lumbar region without neurogenic claudication; M25.78 Osteophyte, vertebrae; M47.816 Spondylosis without myelopathy or radiculopathy, lumbar region
CPT/HCPCS: 72100